=== PATIENT | female | born 1960 | race Caucasian/White ===

== ENCOUNTER → 2021-04-18 07:28 | Outpatient (CLI) | payer BC, SELFPAY ==
--- NOTE | ~2021-04-18 | XR_ITS ---
EXAMINATION: HAND-JARRELL ARTHRITIS 3+VIEWS DATE: 04/18/2021 07:47 INDICATION: Bilateral hand pain. TECHNIQUE: Posteroanterior, lateral, and oblique views of the left and of the right hands as well as a ballcatchers view of both hands were obtained. COMPARISON: None. FINDINGS: Ossicle overlying the tip of the small left ulnar styloid process suggesting chronic nonunited fractu re. Bone alignment is otherwise normal. No acute fractures identified. Mild polyarticular osteoarthri tis at several of the interphalangeal joints with distal predominance. Periarticular soft tissue swel ling at the right third proximal interphalangeal joint. Tiny dystrophic calcification projecting over the region of the radial collateral ligament of the right third metacarpophalangeal joint with small erosion at the radial base of the proximal phalanx. No other erosions identified. IMPRESSION: 1. Mild polyarticular osteoarthritis at several predominantly distal interphalangeal joints. 2. Single isolated erosion at the radial base of the right third proximal phalanx with adjacent tiny dystrophic soft tissue calcification in the region of the radial collateral ligament complex. No othe r erosions identified. Differential would include inflammatory arthritis such as rheumatoid or sequel a of old trauma to the radial collateral ligament. Correlate with clinical history. 3. 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 Reviewed, dictated and finalized at location A. IMPRESSION: 1. Mild polyarticular osteoarthritis at several predominantly distal interphala ngeal joints. 2. Single isolated erosion at the radial base of the right third proximal phala nx with adjacent tiny dystrophic soft tissue calcification in the region of the radial collateral ligament complex. No other erosions identified. Differential would include inflammatory arthritis such as rheumatoid or sequela of old trau ma to the radial collateral ligament. Correlate with clinical history. 3. 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
== END ==
PROVIDERS: PCP Family Medicine; Visit Provider Physician Assistant Medical
DX: M19.041 Primary osteoarthritis, right hand (principal); M19.042 Primary osteoarthritis, left hand
CPT/HCPCS: 73130

== ENCOUNTER 2021-06-28 10:22 | Outpatient (CLI) | payer BC, SELFPAY ==
--- NOTE | 2021-06-28 11:45 | NEURO_ITS ---
Impression: # Complains of left hand pain and numbness. # Left severe Carpal Tunnel Syndrome. # No ulnar neuropathy. # Normal needle/EMG exam. # Cross innervation ulnar to median above the wrist noted. Nerve Conduction Studies Anti Sensory Summary Table Stim Site NR Peak (ms) P-T Amp (?V) Site1 Site2 Delta-P (ms) Dist (cm) Flaco (m/s) Left Median Anti Sensory (2-3nd Digit) Wrist 7.1 5.4 Wrist 2-3nd Digit 7.1 14.0 20 Wrist 8.4 21.0 Wrist 2-3nd Digit 7.1 14.0 20 Right Median Anti Sensory (2-3nd Digit) Wrist 2.9 61.1 Wrist 2-3nd Digit 2.9 14.0 48 Wrist 2.8 60.6 Wrist 2-3nd Digit 2.9 14.0 48 Left Radial Anti Sensory (Base 1st Digit) Wrist 1.7 23.3 Wrist Base 1st Digit 1.7 0.0 Right Radial Anti Sensory (Base 1st Digit) Wrist 1.8 18.8 Wrist Base 1st Digit 1.8 0.0 Left Ulnar Anti Sensory (5th Digit) Wrist 2.4 48.6 Wrist 5th Digit 2.4 14.0 58 Right Ulnar Anti Sensory (5th Digit) Wrist 2.1 24.2 Wrist 5th Digit 2.1 14.0 67 Motor Summary Table Stim Site NR Onset (ms) O-P Amp (mV) Site1 Site2 Delta-0 (ms) Dist (cm) Flaco (m/s) Left Median Motor Run #2 (Abd Poll Brev) Wrist 7.0 0.7 Elbow Wrist 0.7 26.0 371 Elbow 7.7 1.9 Right Median Motor (Abd Poll Brev) Wrist 3.1 6.9 Elbow Wrist 4.7 26.0 55 Elbow 7.8 5.9 Left Ulnar Motor (Abd Dig Minimi) Wrist 2.3 5.0 A Elbow Wrist 4.7 28.0 60 A Elbow 7.0 4.1 Right Ulnar Motor (Abd Dig Minimi) Wrist 1.9 7.8 A Elbow Wrist 4.7 27.0 57 A Elbow 6.6 7.2 F Wave Studies NR F-Lat (ms) L-R F-Lat (ms) Left Median (Mrkrs) (Abd Poll Brev) 28.85 0.88 Right Median (Mrkrs) (Abd Poll Brev) 27.97 0.88 Left Ulnar (Mrkrs) (Abd Dig Min) 25.12 0.93 Right Ulnar (Mrkrs) (Abd Dig Min) 26.05 0.93 EMG Side Muscle Nerve Root Ins Act Fibs Amp Dur Recrt Comment Right 1stDorInt Ulnar C8-T1 Nml Nml Nml Nml Nml Right Ext Indicis Radial (Post Int) C7-8 Nml Nml Nml Nml Nml Right Ext Digitorum Radial (Post Int) C7-8 Nml Nml Nml Nml Nml Right BrachioRad Radial C5-6 Nml Nml Nml Nml Nml Right PronatorTeres Median C6-7 Nml Nml Nml Nml Nml Right Abd Poll Brev Median C8-T1 Nml Nml Nml Nml Nml Left 1stDorInt Ulnar C8-T1 Nml Nml Nml Nml Nml Left Ext Indicis Radial (Post Int) C7-8 Nml Nml Nml Nml Nml Left Ext Digitorum Radial (Post Int) C7-8 Nml Nml Nml Nml Nml Left BrachioRad Radial C5-6 Nml Nml Nml Nml Nml Left PronatorTeres Median C6-7 Nml Nml Nml Nml Nml Left Abd Poll Brev Median C8-T1 Nml Nml Nml Nml Nml MTDD
== END 2021-06-28 10:23 | disposition home or self-care (01) ==
PROVIDERS: PCP Family Medicine; Visit Provider Physician Assistant Medical
DX: R20.0 Anesthesia of skin (principal); G56.02 Carpal tunnel syndrome, left upper limb; G56.22 Lesion of ulnar nerve, left upper limb
CPT/HCPCS: 95886; 95911

== ENCOUNTER → 2021-08-21 02:33 | Outpatient (CLI) | payer BC, SELFPAY ==
[2021-08-21 16:20] LABS: SARS-CoV-2 RNA PCR Negative
== END ==
PROVIDERS: PCP Family Medicine; Visit Provider Plastic Surgery
DX: Z01.812 Encounter for preprocedural laboratory examination (principal); Z20.822 Contact with and (suspected) exposure to COVID-19
CPT/HCPCS: C9803; U0003; U0005

== ENCOUNTER 2021-08-24 00:12 | Day surgery (SDC) | payer BC, SELFPAY ==
--- NOTE | 2021-08-21 09:53 | PC.NURSE ---
Report to the Outpatient Waiting Room, entrance under the green pavilion located off [facility], at time 0600 on date 08/24/21. OR Time: 0730. - You and your visitor will be asked a series of questions to screen for COVID 19 for your protection. - A mask is required within the hospital. - Only one visitor is allowed at this time. Patient visitors will be guided where to wait when not with patient. Preoperative COVID Testing Requirements: No COVID Test needed if: (proof is required; if not received patient will have Rapid Test prior to entry) - Patient has received COVID Vaccine at least 14 days prior to procedure date or - Patient has positive COVID test result within last 90 days of surgery date. COVID Test needed if above criteria is not met If not COVID vaccinated a COVID test must be conducted within 72 hours of surgery and patient is asked to isolate self from time of testing until procedure. You will go to the [employer] [facility] for your COVID testing. The [employer] [facility] is located at the corner of [address] [facility]. You will only be called if COVID results are positive and your surgeon may reschedule your elective surgery date. Patients may have clear liquids (water, carbonated beverages, clear teas, apple juice) until 3 hours prior to surgery with a maximum of 20 ounces. - No food from midnight until time of surgery - Infants may have breast milk until 4 hours before surgery, formula 6 hours prior to surgery. - Children will be allowed to drink immediately following surgery. If applicable, please bring a bottle or sippy cup to assist with drinking. Juice, water, soda, and popsicles are readily available. For infants on formula, please bring formula the day of surgery. Pacifiers are allowed. Take the following medications with a SIP of water the morning of surgery: LEVOTHYROXINE Please no make-up, nail canadian, hairspray, perfume, deodorant, or body powder the day of surgery. No jewelry (including any body piercings) or valuables the day of surgery, leave them at home. Please take a shower or bath the night before, or the morning of, surgery with an antibacterial soap. Wear comfortable, loose fitting clothing. Children are encouraged to wear pajamas. - Jewelry must be removed prior to entering the operating room. Rings and piercings that are not removed may be cut off. - The hospital will not accept responsibility for valuables. - Please leave all valuables, including medications, at home the day of surgery. If you are going home after surgery, a licensed train driver must drive you home. - NO public transportation without another adult. - We recommend that an adult stay with you for 24 hours following discharge. - We also recommend that you do not drive, make important decision, drink alcoholic beverages, or take any drugs that were not prescribed by your health care provider for at least 24 hours after your discharge time. For Pediatric surgeries, we recommend two adults accompany the child home (only one inside the building at this time). Follow any additional instructions given to you from your surgeon. Telephone instructions given to BINTA CHASE and asked if any additional questions and then verbalized understanding. Patient advised to call surgeon office or pre surgery nurse liaison [phone] if any additional questions.
[2021-08-21 10:10] VITALS: BMI 27.0
[2021-08-24 06:15] VITALS: BP 128/68; PULSE 83; RESP 16; TEMP 36.7; O2SAT 98
[2021-08-24] MEDS: LACTATED RINGERS 1,000 ML 30 ML IV CONT (06:45)
--- NOTE | 2021-08-24 06:45 | P.PNAN_ITS ---
Anes - Initial Pre Proc Eval Procedure: Operation Date: 08/24/21 07:30 Proposed Procedures p Left Open Carpal Tunnel Release - Russ Gauthier MD s Release Left First A-1 Staci - Russ Gauthier MD Date/Time: 08/24/21 06:45 Surgeon: Russ Gauthier MD Pre Op Diagnosis: left carpal tunnel syndrome, left trigger thumb Patient Data Age: 60 Gender: F Height: 1.56 m Weight: 66 kg Allergies Allergy/AdvReac Type Severity Reaction Status Date / Time sulfamethizole Allergy Severe Hives Verified 08/21/21 10:05 sulfamethoxazole Allergy Severe HIVES Verified 08/21/21 10:05 trimethoprim Allergy Severe Hives Verified 08/21/21 10:05 Home Medications Medication Instructions Recorded Confirmed Type hydroxyzine HCl 50 mg tablet 50 mg PO BID #180 tablet 05/15/21 08/21/21 Rx diphenhydramine HCl [Nervine] 25 mg PO TID PRN 08/21/21 08/21/21 History levothyroxine 88 mcg tablet 88 mcg PO DAILY #90 tablet 08/21/21 Rx Patient hx anesthesia problems: none Family hx anesthesia problems: none Results Review: All pre-operative results and documents have been reviewed as part of the pre-operative evaluation. [facility] Past Medical History Medical History BMI 28.0-28.9,adult Hormone imbalance Hypothyroidism Screening cholesterol level Skin lesion of left leg Family History Family History Other Family history of coronary artery disease Hypertension Social History Social History Alcohol intake: current Drinks per week: 2 Substance use: never Substance use type: does not use Living arrangements: with family Spiritual care concerns: No Anes - Eval Final PreProcedure Day of Procedure 08/24/21 06:45 Patient weight: overweight Heart: regular rate and rhythm Lungs: clear to auscultation Airway: Mallampati scale class II Neurological: alert and oriented Last oral intake: >/= 8 hours ASA classification: II Emergent: no Anesthetic plan: proceed Anesthesia type and monitoring: general GIVS and standard monitoring Results Review: All pre-operative results and documents have been reviewed as part of the pre-operative evaluation. Informed Consent: The patient's anesthetic plan and its attendant risks and benefits were discussed with the patient/family/POA. Questions were solicited and answers provided to the satisfaction of the patient/family/POA.
--- NOTE | 2021-08-24 07:14 | WPDHPUPDATE1 ---
History and Physical Update Update Date/Time: 08/24/21 07:14 History and Physical has been reviewed, including an updated exam of the patient. There are NO changes in the patient's condition. Risks, benefits, and alternatives have been discussed and questions answered. Patient agrees to proceed with procedure.
[2021-08-24] MEDS: LIDO 1%/EPINEPHRINE/PF 1:200,000 30 ML VIAL INFILTRATE (07:40)
[2021-08-24 07:56] VITALS: BP 127/83; PULSE 67; RESP 14; O2SAT 96
--- NOTE | 2021-08-24 07:58 | W.PM.PROC2 ---
Procedure Note - Detailed Date of Procedure 08/24/21 Pre-op Diagnosis left carpal tunnel syndrome, left trigger thumb Post-op Diagnosis same Procedure Performed Left open carpal tunnel release and left 1st A1 carloz release Surgeon Russ Gauthier MD Anesthesia MAC Description of Procedure The patient was greeted in the holding area and both sites marked on her left hand for the trigger thumb release in the carpal tunnel release. She was then taken to the operating room where she was placed supine on the operating table. A time-out was held and confirmed. She was given IV sedation. The left upper extremity was prepped and draped in usual fashion. The sites were remarked for incisions and locally infiltrated with 1% lidocaine with epinephrine. The tourniquet was raised to 250 mmHg. The incision in base of the thumb was done 1st of blunt dissection through the thin subcutaneous fat revealed the A1 carloz. This was incised with a 15. Blade. The release of the A1 carloz was completed with scissors. Patient was not responsive and the tendon was not elevated out of the wound on tips of Littler scissors. This appeared to allow free motion. Attention was turned to the carpal ligament site the in. The incision was made there and dissection was carried bluntly through the subcutaneous tissue to the palmar aponeurosis. This was incised with a 15 blade. The underlying carpal ligament was also incised with a 15 blade. Under 3 point retraction the ligament was divided distally and proximally to completely release it. The 2 skin wounds were closed with interrupted 5 0 nylon suture. No unusual anatomy was noted. The usual bandages were applied the tourniquet was released. She is discharged from the operating room stable condition she has a prescription sent to her pharmacy for hydrocodone 5/325 on 7. Tourniquet Time 11 Drains No Packing No Pathology none sent Complications No immediate complications Condition stable Disposition same day
[2021-08-24 08:15] VITALS: BP 127/94; PULSE 62; RESP 14; O2SAT 95
[2021-08-24 08:40] VITALS: BP 136/72; PULSE 58; RESP 14
== END 2021-08-24 08:53 | disposition home or self-care (01) ==
PROVIDERS: PCP Family Medicine; Visit Provider Plastic Surgery
PROC: (CPT 64721; principal; 2021-08-24 07:30)
PROC: (CPT 26055; 2021-08-24 07:30)
DX: G56.02 Carpal tunnel syndrome, left upper limb (principal); M65.312 Trigger thumb, left thumb; E03.9 Hypothyroidism, unspecified
CPT/HCPCS: 64721; 26055; A9270; C9803; J2250; J2704; J3010; J7120; U0003; U0005

== ENCOUNTER → 2021-10-16 02:08 | Outpatient (CLI) | payer BC, SELFPAY ==
[2021-10-16 19:04] LABS: SARS-CoV-2 RNA PCR Negative
== END ==
PROVIDERS: PCP Family Medicine; Visit Provider Plastic Surgery
DX: Z01.812 Encounter for preprocedural laboratory examination (principal); Z20.822 Contact with and (suspected) exposure to COVID-19
CPT/HCPCS: C9803; U0003; U0005

== ENCOUNTER 2021-10-19 00:22 | Day surgery (SDC) | payer BC, SELFPAY ==
[2021-10-12 10:06] VITALS: BMI 27.4
--- NOTE | 2021-10-12 10:12 | PC.NURSE ---
Report to the Outpatient Waiting Room, entrance under the green pavilion located off [facility], at time 0730 on date 10/19/21. OR Time: 0930. - You and your visitor will be asked a series of questions to screen for COVID 19 for your protection. - A mask is required within the hospital. - Only one visitor is allowed at this time. Patient visitors will be guided where to wait when not with patient. Preoperative COVID Testing Requirements: No COVID Test needed if: (proof is required; if not received patient will have Rapid Test prior to entry) - Patient has received COVID Vaccine at least 14 days prior to procedure date or - Patient has positive COVID test result within last 90 days of surgery date. COVID Test needed if above criteria is not met If not COVID vaccinated a COVID test must be conducted within 72 hours of surgery and patient is asked to isolate self from time of testing until procedure. You will go to the [employer] [facility] for your COVID testing. The [employer] [facility] is located at the corner of [address] [facility]. COVID TEST 10/16 AT 0830 You will only be called if COVID results are positive and your surgeon may reschedule your elective surgery date. Patients may have clear liquids (water, carbonated beverages, clear teas, apple juice) until 3 hours prior to surgery with a maximum of 20 ounces. - No food from midnight until time of surgery - Infants may have breast milk until 4 hours before surgery, infant formula 6 hours prior to surgery. - Children will be allowed to drink immediately following surgery. If applicable, please bring a bottle or sippy cup to assist with drinking. Juice, water, soda, and popsicles are readily available. For infants on formula, please bring formula the day of surgery. Pacifiers are allowed. Take the following medications with a SIP of water the morning of surgery: LEVOTHYROXINE Medications to discontinue per physician: N/A Date to take last dose: N/A Please no make-up, nail swiss, hairspray, perfume, deodorant, or body powder the day of surgery. No jewelry (including any body piercings) or valuables the day of surgery, leave them at home. Please take a shower or bath the night before, or the morning of, surgery with an antibacterial soap. Wear comfortable, loose fitting clothing. Children are encouraged to wear pajamas. - Jewelry must be removed prior to entering the operating room. Rings and piercings that are not removed may be cut off. - The hospital will not accept responsibility for valuables. - Please leave all valuables, including medications, at home the day of surgery. If you are going home after surgery, a licensed production truck driver must drive you home. - NO public transportation without another adult. - We recommend that an adult stay with you for 24 hours following discharge. - We also recommend that you do not drive, make important decision, drink alcoholic beverages, or take any drugs that were not prescribed by your health care provider for at least 24 hours after your discharge time. For Pediatric surgeries, we recommend two adults accompany the child home (only one inside the building at this time). Follow any additional instructions given to you from your surgeon. Telephone instructions given to BINTA CHASE and asked if any additional questions and then verbalized understanding. Patient advised to call surgeon office or pre surgery nurse liaison [phone] if any additional questions.
--- NOTE | 2021-10-19 07:12 | WPDHPUPDATE1 ---
History and Physical Update Update Date/Time: 10/19/21 07:12 History and Physical has been reviewed, including an updated exam of the patient. There are NO changes in the patient's condition. Risks, benefits, and alternatives have been discussed and questions answered. Patient agrees to proceed with procedure.
[2021-10-19 07:27] VITALS: BMI 26.9
[2021-10-19 07:30] VITALS: BP 137/71; PULSE 78; RESP 16; TEMP 37.1; O2SAT 100
[2021-10-19] MEDS: LACTATED RINGERS 1,000 ML 30 ML IV CONT (07:45)
--- NOTE | 2021-10-19 08:42 | WPDANESEPPF ---
Anes - Initial Pre Proc Eval Procedure: Operation Date: 10/19/21 09:30 Proposed Procedures p Right Open Carpal Tunnel Release - Russ Gauthier MD Date/Time: 10/19/21 08:42 Surgeon: Russ Gauthier MD Pre Op Diagnosis: right carpal tunnel syndrome Patient Data Age: 61 Gender: F Height: 1.56 m Weight: 65.8 kg Allergies Allergy/AdvReac Type Severity Reaction Status Date / Time sulfamethizole Allergy Severe Hives Verified 10/19/21 07:40 sulfamethoxazole Allergy Severe HIVES Verified 10/19/21 07:40 trimethoprim Allergy Severe Hives Verified 10/19/21 07:40 Home Medications Medication Instructions Recorded Confirmed Type hydroxyzine HCl 50 mg tablet 50 mg PO BID #180 tablet 05/15/21 10/12/21 Rx diphenhydramine HCl 25 mg PO HS PRN 08/21/21 10/12/21 History levothyroxine 88 mcg tablet 88 mcg PO DAILY #90 tablet 08/28/21 10/19/21 Rx Patient hx anesthesia problems: none Family hx anesthesia problems: none Results Review: All pre-operative results and documents have been reviewed as part of the pre-operative evaluation. [facility] Past Medical History Medical History BMI 28.0-28.9,adult Hormone imbalance Hypothyroidism Screening cholesterol level Skin lesion of left leg Family History Family History Other Family history of coronary artery disease Hypertension Social History Social History Smoking status: Never smoker Alcohol intake: never Drinks per week: 2 Substance use: never Substance use type: does not use Living arrangements: with family Spiritual care concerns: No Anes - Eval Final PreProcedure Day of Procedure 10/19/21 08:42 Patient weight: overweight Heart: regular rate and rhythm Lungs: clear to auscultation Airway: Mallampati scale class II Neurological: alert and oriented Last oral intake: >/= 8 hours ASA classification: II Emergent: no Anesthetic plan: proceed Anesthesia type and monitoring: general GIVS and standard monitoring Results Review: All pre-operative results and documents have been reviewed as part of the pre-operative evaluation. Informed Consent: The patient's anesthetic plan and its attendant risks and benefits were discussed with the patient/family/POA. Questions were solicited and answers provided to the satisfaction of the patient/family/POA.
[2021-10-19] MEDS: LIDO 1%/EPINEPHRINE/PF 1:200,000 30 ML VIAL XX (09:26)
--- NOTE | 2021-10-19 09:37 | SUR.OPER ---
Room Time: 09:11 Time Out: 09:24 Incision: 09:26 Close: 09:35 Out of Room: 09:38
[2021-10-19] MEDS: BACITRACIN OINTMENT 15 GM TUBE 1 APPLIC TOPICAL (09:38)
[2021-10-19 09:39] VITALS: BP 125/79; PULSE 75; RESP 19; O2SAT 95
[2021-10-19 10:00] VITALS: BP 116/96; PULSE 90; RESP 18; O2SAT 97
[2021-10-19 10:30] VITALS: BP 138/64; PULSE 63; RESP 18
--- NOTE | 2021-10-19 10:31 | W.PM.PROC2 ---
Procedure Note - Detailed Date of Procedure 10/19/21 Pre-op Diagnosis right carpal tunnel syndrome Post-op Diagnosis same Procedure Performed Right open carpal tunnel release Surgeon Russ Gauthier MD Anesthesia MAC Description of Procedure The right carpal tunnel was marked on the patient in the holding area. He was taken to the operating room where he was placed supine on the operating table. A time-out was held and confirmed. He was given IV sedation and the right upper extremity was prepped and draped in usual fashion. The site for incision was marked and locally infiltrated with 1% lidocaine with epinephrine. No tourniquet was utilized. Incision was made as marked and dissection was carried bluntly through the subcutaneous tissue to the palmar aponeurosis. This and the carpal retinaculum were incised with a 15. Blade opening the canal. The ligament was exposed with retractors and the ligament divided distally and proximally to completely release it. No unusual anatomy was noted. The skin was closed with interrupted 5 0 nylon suture and the usual bandage was applied. She is discharge instructions wound care and follow-up. She has hydrocodone at home from her last surgery and wished no more . Estimated Blood Loss 2 Tourniquet Time 0 Drains No Packing No Pathology none sent Complications No immediate complications Condition stable Disposition same day
== END 2021-10-19 10:50 | disposition home or self-care (01) ==
PROVIDERS: PCP Family Medicine; Visit Provider Plastic Surgery
PROC: (CPT 64721; principal; 2021-10-19 09:30)
DX: G56.01 Carpal tunnel syndrome, right upper limb (principal); E03.9 Hypothyroidism, unspecified
CPT/HCPCS: 64721; A9270; C9803; J2704; J3010; J7120; U0003; U0005

== ENCOUNTER → 2022-03-13 15:46 | Outpatient (CLI) | payer BC, SELFPAY ==
--- NOTE | ~2022-03-13 | XR_ITS ---
EXAM: XR foot RT 2V DATE: 03/13/2022 16:12 HISTORY: M79.673 - Pain in unspecified foot . COMPARISON: None available. FINDINGS: Decreased mineralization. No fracture or dislocation. No lytic or blastic lesion. Joint sp aces are maintained. No erosion or periosteal change. Soft tissues within normal limits. IMPRESSION: Osteopenia, otherwise normal right foot radiograph findings. Reviewed, dictated and finalized at location K.
--- NOTE | ~2022-03-13 | XR_ITS ---
EXAM: XR knee RT 2V DATE: 03/13/2022 16:12 HISTORY: M25.569 - Pain in unspecified knee . COMPARISON: None available. FINDINGS: Decreased mineralization. No fracture or dislocation. No lytic or blastic lesion. Mild med ial joint space narrowing and subchondral sclerosis. No erosion or periosteal change. Soft tissues wi thin normal limits. IMPRESSION: Mild right knee osteoarthritis. Mild osteopenia. Reviewed, dictated and finalized at location K.
== END ==
PROVIDERS: PCP Family Medicine; Visit Provider Nurse Practitioner Family
DX: M85.871 Other specified disorders of bone density and structure, right ankle and foot (principal); M17.11 Unilateral primary osteoarthritis, right knee; M85.861 Other specified disorders of bone density and structure, right lower leg; Z87.312 Personal history of (healed) stress fracture
CPT/HCPCS: 73560; 73620

== ENCOUNTER → 2022-04-02 07:04 | Outpatient (CLI) | payer BC, SELFPAY ==
--- NOTE | ~2022-04-02 | MR_ITS ---
EXAMINATION: MR knee RT wo con DATE: 04/02/2022 07:37 INDICATION: Right knee pain TECHNIQUE: Magnetic resonance imaging (MRI) of the right knee was performed without intravenous contr ast. Sequences included coronal PD-weighted FSE, coronal PD-weighted FS FSE, sagittal T2-weighted FS E, sagittal PD-weighted FS FSE and axial PD weighted fat saturated FSE. COMPARISON: Right knee radiographs dated 03/09/2022 FINDINGS: Medial compartment: Amorphous increased intrasubstance signal at the posterior horn of the medial meniscus which does not unambiguously contact the articular surface to meet criteria for meniscal tear which would be consis tent with mucoid degeneration. There is prominent marrow edema surrounding a low signal intensity sub articular fracture line underlying the anterior weightbearing medial femoral condyle with subtle flat tening of the articular cortex. Articular cartilage the medial compartment appears relatively preserv ed for subtle chondral surface irregularity along the anterior to central weightbearing medial femora l condyle. Lateral compartment: Lateral meniscus is normal. Articular cartilage is normal. Patellofemoral compartment: Full-thickness chondral fissuring with mild underlying subarticular edema and cystlike changes at the junction of the mid to caudal third of the patellar apical ridge. Additional deep chondral fissuring with subtle underlying cortical irregularity and subarticular edema-like signal change at the inferi or aspect of the medial trochlea. Ligaments and tendons: Anterior and posterior cruciate ligaments are normal. The medial collateral ligament and fibular kishor ateral ligament complex are normal. The extensor mechanism is normal. The visualized medial and later al hamstring tendons as well as the iliotibial band are normal. Fluid: Physiologic amount of fluid in the joint space. No loose osteochondral bodies identified. Osseous/other: Additional mild marrow edema without evident fracture line in the proximal metaphyseal region of the tibia. No pathologic marrow replacing process. IMPRESSION: 1. Nondisplaced subarticular fracture line at the anterior weightbearing medial femoral condyle with maximal flattening of the articular cortex which could be due to either a discrete injury or an ongoi ng progressive stress or insufficiency fracture. 2. Mild osteoarthritis in the medial and patellofemoral compartments, the latter with a couple small regions of high-grade chondromalacia. 3. Mucoid degeneration in the posterior horn of the medial meniscus without discrete tear. Reviewed, dictated and finalized at location A. IMPRESSION: 1. Nondisplaced subarticular fracture line at the anterior weightbearing medial femoral condyle with maximal flattening of the articular cortex which could be due to either a discrete injury or an ongoing progressive stress or insufficie ncy fracture. 2. Mild osteoarthritis in the medial and patellofemoral compartments, the latte r with a couple small regions of high-grade chondromalacia. 3. Mucoid degeneration in the posterior horn of the medial meniscus without dis crete tear.
== END ==
PROVIDERS: PCP Family Medicine; Visit Provider Nurse Practitioner Family
DX: M17.11 Unilateral primary osteoarthritis, right knee (principal); S72.434A Nondisplaced fracture of medial condyle of right femur, initial encounter for closed fracture; X58.XXXA Exposure to other specified factors, initial encounter
CPT/HCPCS: 73721

== ENCOUNTER 2022-05-11 00:23 | Day surgery (SDC) | payer BC, SELFPAY ==
[2022-05-01 10:13] VITALS: BMI 28.4
--- NOTE | 2022-05-10 14:32 | PM.HPGS ---
History of Present Illness History of Present Illness Consent: Risks, benefits, and alternatives have been discussed and questions answered. Patient agrees to proceed with procedure. Chief complaint: neoplasm screening Narrative: Barbara Arita is a 61 year old female Referred for colon cancer screening. Review of Systems Review of Systems: All systems reviewed & are unremarkable except as noted in HPI and below PMFSH Past Medical History Medical History Acute medial meniscus tear of right knee BMI 28.0-28.9,adult Carpal tunnel syndrome of left wrist Carpal tunnel syndrome of right wrist Chondromalacia of right patellofemoral joint Degenerative arthritis of right knee Hormone imbalance Hyperthyroidism Hypothyroidism Insufficiency fracture of medial femoral condyle Screening cholesterol level Screening mammogram for high-risk patient Skin lesion of left leg Surgical History Surgical History History of ankle surgery Left ganglion cyst excision 07/2019 Dr. Rashid. History of carpal tunnel surgery Left 08/2021 Right 09/[address] Strauss Family History Family History Other Family history of coronary artery disease Heart disease Hypertension Social History Social History Smoking status: Never smoker Alcohol intake: current Drinks per week: 1 Substance use: never Substance use type: does not use Living arrangements: with family Gender identity (if verbalized by the patient): Female Spiritual care concerns: No Meds Home Medications and Allergies Home Medications Medication Instructions Recorded Confirmed Type hydroxyzine HCl 50 mg tablet 50 mg PO BID #180 tabs 04/04/22 05/01/22 Rx levothyroxine 88 mcg tablet 88 mcg PO DAILY #90 tabs 04/04/22 05/01/22 Rx (Synthroid) calcium carbonate 600 mg calcium 600 mg PO DAILY 04/18/22 05/01/22 History (1,500 mg) tablet cholecalciferol (vitamin D3) 1,200 mcg PO DIRECTED 04/18/22 05/01/22 History Allergies Allergy/AdvReac Type Severity Reaction Status Date / Time sulfamethizole Allergy Severe Hives Verified 05/11/22 07:21 sulfamethoxazole Allergy Severe HIVES Verified 05/11/22 07:21 trimethoprim Allergy Severe Hives Verified 05/11/22 07:21 terbinafine Allergy Unknown Hives Verified 05/11/22 07:21 Exam Resp: Auscultation: clear to auscultation bilaterally Cardio: Rate: regular rate Rhythm: regular rhythm GI: GI Palp: Yes Soft to palpation and No Tenderness to palpation present (GI) Assessment and Plan Assessment and plan (1) Colon cancer screening: Code(s): Z12.11 - Encounter for screening for malignant neoplasm of colon Status: Acute Assessment and Plan: Colonoscopy with possible biopsy or polypectomy or cautery or injection of substances.
[2022-05-11 07:23] VITALS: BP 135/78; PULSE 84; RESP 18; TEMP 36.7; O2SAT 100
[2022-05-11] MEDS: LACTATED RINGERS 1,000 ML 150 ML IV CONT (07:34)
--- NOTE | 2022-05-11 07:56 | WPDANESEPPF ---
Anes - Initial Pre Proc Eval Procedure: Operation Date: 05/11/22 08:30 Proposed Procedures p Screening Colonoscopy - Alberto Appiah MD Date/Time: 05/11/22 07:56 Surgeon: Alberto Appiah MD Pre Op Diagnosis: neoplasm screening Patient Data Age: 61 Gender: F Height: 1.55 m Weight: 67 kg Last Vital Signs Temp 36.7 C 05/11/22 07:23 Pulse 84 05/11/22 07:23 Resp 18 05/11/22 07:23 BP 135/78 05/11/22 07:23 Pulse Ox 100 05/11/22 07:23 O2 Del Method Room Air 05/11/22 07:23 Allergies Allergy/AdvReac Type Severity Reaction Status Date / Time sulfamethizole Allergy Severe Hives Verified 05/11/22 07:21 sulfamethoxazole Allergy Severe HIVES Verified 05/11/22 07:21 trimethoprim Allergy Severe Hives Verified 05/11/22 07:21 terbinafine Allergy Unknown Hives Verified 05/11/22 07:21 Home Medications Medication Instructions Recorded Confirmed Type hydroxyzine HCl 50 mg tablet 50 mg PO BID #180 tabs 04/04/22 05/01/22 Rx levothyroxine 88 mcg tablet 88 mcg PO DAILY #90 tabs 04/04/22 05/01/22 Rx (Synthroid) calcium carbonate 600 mg calcium 600 mg PO DAILY 04/18/22 05/01/22 History (1,500 mg) tablet cholecalciferol (vitamin D3) 1,200 mcg PO DIRECTED 04/18/22 05/01/22 History Patient hx anesthesia problems: post op nausea/vomiting Family hx anesthesia problems: none Results Review: All pre-operative results and documents have been reviewed as part of the pre-operative evaluation. [facility] Past Medical History Medical History Acute medial meniscus tear of right knee BMI 28.0-28.9,adult Carpal tunnel syndrome of left wrist Carpal tunnel syndrome of right wrist Chondromalacia of right patellofemoral joint Degenerative arthritis of right knee Hormone imbalance Hyperthyroidism Hypothyroidism Insufficiency fracture of medial femoral condyle Screening cholesterol level Screening mammogram for high-risk patient Skin lesion of left leg Surgical History Surgical History History of ankle surgery Left ganglion cyst excision 07/2019 Dr. Rashid. History of carpal tunnel surgery Left 08/2021 Right 09/[address] Strauss Family History Family History Other Family history of coronary artery disease Heart disease Hypertension Social History Social History Smoking status: Never smoker Alcohol intake: current Drinks per week: 1 Substance use: never Substance use type: does not use Living arrangements: with family Gender identity (if verbalized by the patient): Female Spiritual care concerns: No Anes - Eval Final PreProcedure Day of Procedure 05/11/22 07:56 Patient weight: overweight Heart: regular rate and rhythm Lungs: clear to auscultation Airway: Mallampati scale class II Neurological: alert and oriented Last oral intake: >/= 8 hours ASA classification: II Emergent: no Anesthetic plan: proceed Anesthesia type and monitoring: general GIVS and standard monitoring Results Review: All pre-operative results and documents have been reviewed as part of the pre-operative evaluation. Informed Consent: The patient's anesthetic plan and its attendant risks and benefits were discussed with the patient/family/POA. Questions were solicited and answers provided to the satisfaction of the patient/family/POA.
[2022-05-11 08:29] VITALS: BP 118/72; PULSE 77; RESP 17; O2SAT 100
[2022-05-11 08:39] VITALS: BP 124/77; PULSE 76; RESP 18; O2SAT 100
[2022-05-11 08:49] VITALS: BP 142/81; PULSE 75; RESP 20; O2SAT 100
== END 2022-05-11 09:08 | disposition home or self-care (01) ==
PROVIDERS: PCP Family Medicine; Visit Provider Internal Medicine Gastroenterology
PROC: 0DJD8ZZ Inspection of Lower Intestinal Tract, Via Natural or Artificial Opening Endoscopic (ICD-10-PCS; CPT 45378; principal; 2022-05-11 08:30)
DX: Z12.11 Encounter for screening for malignant neoplasm of colon (principal); K64.8 Other hemorrhoids; E03.9 Hypothyroidism, unspecified; M19.90 Unspecified osteoarthritis, unspecified site; E05.90 Thyrotoxicosis, unspecified without thyrotoxic crisis or storm
CPT/HCPCS: 45378; J2704; J7120

== ENCOUNTER 2022-06-24 13:29 | Emergency (ER) | payer BC, SELFPAY ==
[2022-06-24 13:37] VITALS: BP 136/61; PULSE 86; RESP 16; TEMP 36.6; O2SAT 99
--- NOTE | 2022-06-24 13:37 | ED.URI ---
HPI - URI/Sore Throat General Chief Complaint: Upper Respiratory Infection Stated Complaint: Sinus, Coughing Time Seen by Provider: 06/24/22 13:37 Source: patient and RN notes reviewed Mode of arrival: ambulatory Limitations: no limitations History of Present Illness HPI Narrative: 61-year-old female presents to the [facility] with complaints of 2 weeks of cough, sinus congestion. Denies chest pain or abdominal pain. Denies any fevers. Related Data Home Medications Medication Instructions Recorded Confirmed calcium carbonate 600 mg calcium 600 mg PO DAILY 04/18/22 06/24/22 (1,500 mg) tablet cholecalciferol (vitamin D3) 1,200 mcg PO DIRECTED 04/18/22 06/24/22 Allergies Allergy/AdvReac Type Severity Reaction Status Date / Time sulfamethizole Allergy Severe Hives Verified 06/24/22 13:35 sulfamethoxazole Allergy Severe HIVES Verified 06/24/22 13:35 trimethoprim Allergy Severe Hives Verified 06/24/22 13:35 terbinafine Allergy Unknown Hives Verified 06/24/22 13:35 Review of Systems Review of Systems: All systems reviewed & are unremarkable except as noted in HPI and below Constitutional: Constitutional: Reports no additional constitutional complaints, Denies chills and Denies fever(s) Eyes: Eyes: Reports no additional eye complaints ENT: Reports as per HPI, Reports nasal congestion and Reports sore throat Cardiovascular: Cardiovascular: Reports no additional cardiovascular complaints Respiratory: Respiratory: Reports no additional respiratory complaints Gastrointestinal: Gastrointestinal: Reports no additional gastrointestinal complaints Musculoskeletal: Musculoskeletal: Reports no additional musculoskeletal complaints Integumentary/Breasts: Skin/Breast: Reports system reviewed and no additional complaints, except as docu Neurologic: Reports system reviewed and no additional complaints, except as documented Psychiatric: Psychiatric: Reports no additional psychiatric complaints Allergic/Immunologic: Allergic/Immunologic: Reports no additional allergic/immunologic complaints [facility] Past Medical History Medical History Acute medial meniscus tear of right knee BMI 28.0-28.9,adult Carpal tunnel syndrome of left wrist Carpal tunnel syndrome of right wrist Chondromalacia of right patellofemoral joint Degenerative arthritis of right knee Hormone imbalance Hyperthyroidism Hypothyroidism Insufficiency fracture of medial femoral condyle Screening cholesterol level Screening mammogram for high-risk patient Skin lesion of left leg Surgical History Surgical History History of ankle surgery Left ganglion cyst excision 07/2019 Dr. Rashid. History of carpal tunnel surgery Left 08/2021 Right 09/[address] Strauss Family History Family History Other Family history of coronary artery disease Heart disease Hypertension Social History Social History Smoking status: Never smoker Alcohol intake: current Drinks per week: 1 Substance use: never Substance use type: does not use Gender identity (if verbalized by the patient): Female Spiritual care concerns: No Comments At the time of my signature, I reviewed and agree with the nursing past medical, surgical, social, and family history. There is no relevant family history pertinent to the patient complaint. Exam Const: General: healthy appearing, no acute distress and alert Nutritional Appearance: well nourished Orientation/consciousness: patient oriented x3 Limitations: no limitations HENMT: Head: normal to inspection Ears: external ears normal, TM's normal bilaterally and EAC's normal General nose exam: Normal external nose present and Normal nares present Face and sinus: normal facial exam and sinuses nontender Mo
== END 2022-06-24 13:50 | disposition home or self-care (01) ==
PROVIDERS: Emergency Provider Nurse Practitioner; PCP Family Medicine
DX: J40 Bronchitis, not specified as acute or chronic (principal)
CPT/HCPCS: 99213; G0463

== ENCOUNTER 2023-03-14 16:50 | Outpatient (CLI) | payer BC, SELFPAY ==
[2023-03-14 19:00] LABS: Hemoglobin A1C 5.7 % (<5.7)
[2023-03-14 19:15] LABS: Urine Cotinine NEGATIVE
== END 2023-03-14 16:51 | disposition home or self-care (01) ==
PROVIDERS: PCP Family Medicine; Visit Provider Nurse Practitioner Family
DX: Z01.89 Encounter for other specified special examinations (principal); R73.09 Other abnormal glucose
CPT/HCPCS: 80307; 83036

== ENCOUNTER → 2023-07-19 16:13 | Outpatient (CLI) | payer BC, SELFPAY ==
--- NOTE | ~2023-07-19 | MM_ITS ---
EXAMINATION: MM screening nidhi BI w vika HISTORY: Screening mammogram TECHNIQUE: Craniocaudal and mediolateral oblique 3-D tomosynthesis images were obtained and synthetic 2-D images were generated. CAD analysis was submitted and interpreted. COMPARISON: 06/02/2019 bilateral screening mammogram BREAST PARENCHYMAL COMPOSITION: The breasts are heterogeneously dense, which may obscure small masses . FINDINGS: There is no evidence of suspicious mass, calcification, or architectural distortion to sugg est malignancy in either breast. There has been no suspicious interval change. IMPRESSION: 1. No mammographic evidence of malignancy. 2. Recommend routine screening mammography in one year. BI-RADS Category 1: Negative Reviewed, dictated and finalized at location A.
== END ==
PROVIDERS: PCP Family Medicine; Visit Provider Nurse Practitioner Family
DX: Z12.31 Encounter for screening mammogram for malignant neoplasm of breast (principal)
CPT/HCPCS: 77063; 77067

== ENCOUNTER 2023-12-14 08:06 | Emergency (ER) | payer BC, SELFPAY ==
--- NOTE | 2023-12-14 08:14 | ED.URI ---
HPI - URI/Sore Throat General Chief Complaint: Upper Respiratory Infection Stated Complaint: Sore Throat/Eye Irritation Time Seen by Provider: 12/14/23 08:14 Source: patient Mode of arrival: ambulatory Limitations: no limitations History of Present Illness HPI Narrative: 63-year-old female presents with complaint of nasal congestion, sinus pressure, postnasal drainage, scratchy throat the past 2 weeks. Denies pain. Afebrile. Reports coarse voice for 4 days. Taking Coricidin and Neti pot with no relief of symptoms. All systems reviewed and negative except as noted above. Related Data Allergies Allergy/AdvReac Type Severity Reaction Status Date / Time sulfamethizole Allergy Severe Hives Verified 12/14/23 08:17 sulfamethoxazole Allergy Severe HIVES Verified 12/14/23 08:17 terbinafine Allergy Severe Hives Verified 12/14/23 08:17 trimethoprim Allergy Severe Hives Verified 12/14/23 08:17 Review of Systems Review of Systems: CONSTITUTIONAL: Denies fever, chills, or sweats. EYES: Denies visual changes, redness, or discharge. ENT: Reports rhinorrhea, congestion, scratchy throat. Denies otalgia. CARDIOVASCULAR: Denies chest pain, palpitations, or edema. RESPIRATORY: Denies cough or dyspnea. GASTROINTESTINAL: Denies abdominal pain, nausea, vomiting, or diarrhea. GENITOURINARY: Denies dysuria or hematuria. SKIN: Denies rash or itching. MUSCULOSKELETAL: Denies back pain, joint pain, or myalgia. NEUROLOGIC: Denies headache, numbness, or weakness. PSYCHIATRIC: Denies anxiety or depression. All other systems reviewed are negative, except as documented in HPI. COUNT INCLUDES THE [facility] Past Medical History Medical History (Updated 12/14/23 @ 08:35 by Brittani Parks NP) Acute medial meniscus tear of right knee BMI 28.0-28.9,adult Carpal tunnel syndrome of left wrist Carpal tunnel syndrome of right wrist Chondromalacia of right patellofemoral joint Degenerative arthritis of right knee Hematoma of left knee region Hormone imbalance Hyperthyroidism Hypothyroidism Insufficiency fracture of medial femoral condyle Screening cholesterol level Screening mammogram for high-risk patient Skin lesion of left leg Surgical History Surgical History History of ankle surgery Left ganglion cyst excision 07/2019 Dr. Rashid. History of carpal tunnel surgery Left 08/2021 Right 09/[address] Strauss Family History Family History Father CHF (congestive heart failure) Mother CHF (congestive heart failure) Sibling Hyperlipidemia Hypertension Thyroid condition Other Family history of coronary artery disease Heart disease Social History Social History Smoking status: Never smoker Second hand tobacco smoke exposure: No Alcohol intake: current Drinks per week: 1 Substance use: never Substance use type: does not use Lack of Transportation: No Lack of Food: Never True Current Housing: I Have Housing Concerned About Future Housing: No Difficulty Paying Gas/Electric Bills: No Difficulty Paying for Meds: No Currently Unemployed: No Education: Associate Degree Living arrangements: with family Occupation/Education: occupation 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 Gender identity (if verbalized by the patient): Female Spiritual care concerns: No Comments At time of signature, agree with nursing past medical, surgical, social and family history. There is no relevant family history pertinent to the presenting complaint. Exam Narrative: GENERAL: This is a well-nourished, well-developed patient, in no apparent distress. HEAD: normocephalic, atraumatic. EYES: PERRL. Sclera clear/white. Vision is grossly intact. EARS: External ears normal, auditory canals clear and wi
[2023-12-14 08:16] VITALS: BP 141/66; PULSE 76; RESP 16; TEMP 36.7; O2SAT 98
== END 2023-12-14 08:42 | disposition home or self-care (01) ==
PROVIDERS: Emergency Provider Nurse Practitioner Family; PCP Family Medicine
DX: J01.90 Acute sinusitis, unspecified (principal); E05.90 Thyrotoxicosis, unspecified without thyrotoxic crisis or storm; E03.9 Hypothyroidism, unspecified; M17.11 Unilateral primary osteoarthritis, right knee
CPT/HCPCS: 99213; G0463

== ENCOUNTER 2023-12-15 08:04 | Emergency (ER) | payer BC, SELFPAY ==
--- NOTE | 2023-12-15 08:11 | ED.EYEPROB ---
HPI - Eye Problem General Chief complaint: Eye Problems Stated complaint: left eye red Time Seen by Provider: 12/15/23 08:06 Source: patient Mode of arrival: ambulatory Limitations: no limitations History of Present Illness HPI Narrative: Patient is a 63-year-old female presents with left eye being matted shut this morning. Patient was seen at this [facility] yesterday and diagnosed with a sinus infection and given amoxicillin. He was instructed to start taking Zyrtec and Flonase. Denies any fever, chills, nausea, vomiting, diarrhea. Related Data Allergies Allergy/AdvReac Type Severity Reaction Status Date / Time sulfamethizole Allergy Severe Hives Verified 12/15/23 08:13 sulfamethoxazole Allergy Severe HIVES Verified 12/15/23 08:13 terbinafine Allergy Severe Hives Verified 12/15/23 08:13 trimethoprim Allergy Severe Hives Verified 12/15/23 08:13 Review of Systems Review of Systems: All systems reviewed & are unremarkable except as noted in HPI and below Constitutional: Constitutional: Denies body ache(s), Denies fever(s), Denies headache(s), Denies malaise and Denies weakness Eyes: Eyes: Denies blurry vision, Reports eye discharge, Reports irritation, Reports itchy eyes, Denies loss of vision and Denies eye pain ENT: Denies otalgia, Denies headache(s), Denies nasal discharge, Denies sinus pain and Denies sore throat Cardiovascular: Cardiovascular: Denies chest pain, Denies irregular heart rhythm and Denies dyspnea Respiratory: Respiratory: Denies dyspnea Gastrointestinal: Gastrointestinal: Denies abdominal pain, Denies diarrhea, Denies nausea and Denies vomiting Musculoskeletal: Musculoskeletal: Denies back pain, Denies myalgias and Denies arthralgias Integumentary/Breasts: Skin/Breast: Denies pruritus and Denies rash Neurologic: Denies headache(s), Denies loss of vision and Denies weakness Psychiatric: Psychiatric: Reports no additional psychiatric complaints Allergic/Immunologic: Allergic/Immunologic: Reports itchy eyes PMFSH Past Medical History Medical History Acute medial meniscus tear of right knee BMI 28.0-28.9,adult Carpal tunnel syndrome of left wrist Carpal tunnel syndrome of right wrist Chondromalacia of right patellofemoral joint Degenerative arthritis of right knee Hematoma of left knee region Hormone imbalance Hyperthyroidism Hypothyroidism Insufficiency fracture of medial femoral condyle Screening cholesterol level Screening mammogram for high-risk patient Skin lesion of left leg Surgical History Surgical History History of ankle surgery Left ganglion cyst excision 07/2019 Dr. Rashid. History of carpal tunnel surgery Left 08/2021 Right 09/[address] Strauss Family History Family History Father CHF (congestive heart failure) Mother CHF (congestive heart failure) Sibling Hyperlipidemia Hypertension Thyroid condition Other Family history of coronary artery disease Heart disease Social History Social History Smoking status: Never smoker Second hand tobacco smoke exposure: No Alcohol intake: current Drinks per week: 1 Substance use: never Substance use type: does not use Lack of Transportation: No Lack of Food: Never True Current Housing: I Have Housing Concerned About Future Housing: No Difficulty Paying Gas/Electric Bills: No Difficulty Paying for Meds: No Currently Unemployed: No Education: Associate Degree Living arrangements: with family Occupation/Education: occupation 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 Gender identity (if verbalized by the patient): Female Spiritual care concerns: No Comments At time of signature, agree with johnathon
[2023-12-15 08:14] VITALS: BP 147/74; PULSE 77; RESP 16; TEMP 37.1; O2SAT 100
== END 2023-12-15 08:27 | disposition home or self-care (01) ==
PROVIDERS: Emergency Provider Nurse Practitioner Family; PCP Family Medicine
DX: H10.9 Unspecified conjunctivitis (principal); M17.12 Unilateral primary osteoarthritis, left knee; E05.90 Thyrotoxicosis, unspecified without thyrotoxic crisis or storm; E03.9 Hypothyroidism, unspecified
CPT/HCPCS: 99213; G0463

== ENCOUNTER 2024-01-22 16:03 | Outpatient (CLI) | payer BC, SELFPAY ==
--- NOTE | ~2024-01-22 | XR_ITS ---
XR ankle LT min 3V DATE: 01/22/2024 16:30 INDICATION: Fall. Lateral ankle pain TECHNIQUE: 4 views COMPARISON: None FINDINGS: Mild lateral ankle soft tissue swelling. No fracture or dislocation of the ankle or disruption of the ankle mortise. No periosteal reaction or bone destruction. IMPRESSION: Mild lateral ankle soft tissue swelling; no fracture or dislocation Reviewed, dictated and finalized at location B.
== END 2024-01-22 16:04 ==
PROVIDERS: PCP Nurse Practitioner Adult Health; Visit Provider Nurse Practitioner Adult Health
DX: M25.572 Pain in left ankle and joints of left foot (principal); M79.89 Other specified soft tissue disorders
CPT/HCPCS: 73610

== ENCOUNTER 2024-07-06 16:06 | Emergency (ER) | payer BC, SELFPAY ==
--- NOTE | ~2024-07-06 | XR_ITS ---
EXAM: XR knee LT min 4V DATE: 07/06/2024 17:07 HISTORY: left anterior knee pain/twist injury on Saturday . COMPARISON: None available. FINDINGS: Decreased mineralization. No fracture or dislocation. No lytic or blastic lesion. Mild tri compartmental osteoarthritis. Small volume joint fluid. No erosion or periosteal change. Soft tissues within normal limits. IMPRESSION: No acute osseous finding in the left knee. Reviewed, dictated and finalized at location K.
[2024-07-06 16:08] VITALS: BP 133/73; PULSE 78; RESP 18; TEMP 37.1; O2SAT 99
--- NOTE | 2024-07-06 16:08 | ED.EXTPRO ---
HPI - Extremity Problem General Chief complaint: Extremity Problem,Nontraumatic <Roderick Garcia APRN - Last Filed: 07/06/24 17:33> Stated complaint: left knee pain,swollen,hard to bend <Roderick Garcia APRN - Last Filed: 07/06/24 17:33> Time Seen by Provider: 07/06/24 16:08 <Roderick Garcia APRN - Last Filed: 07/06/24 17:33> Source: patient <Roderick Garcia APRN - Last Filed: 07/06/24 17:33> Mode of arrival: ambulatory <Roderick Garcia APRN - Last Filed: 07/06/24 17:33> Limitations: no limitations <Roderick Garcia APRN - Last Filed: 07/06/24 17:33> History of Present Illness HPI Narrative: Barbara is a 63-year-old female patient presenting to the clinic today with complaints of left knee pain/swelling x1 day. She reports she stepped down off a curb yesterday and felt unusual/twist sensation in her knee. States this morning noticed that her knee was swollen she was having difficulty bending and extending the left knee. Has pain with ambulation/bearing weight. Feels as though the knee is catching when she is moving into a standing position. <Roderick Garcia APRN - Last Filed: 07/06/24 17:33> Related Data Allergies/Adverse reactions: Allergies Allergy/AdvReac Type Severity Reaction Status Date / Time sulfamethizole Allergy Severe Hives Verified 07/06/24 16:10 sulfamethoxazole Allergy Severe HIVES Verified 07/06/24 16:10 terbinafine Allergy Severe Hives Verified 07/06/24 16:10 trimethoprim Allergy Severe Hives Verified 07/06/24 16:10 <Roderick Garcia APRN - Last Filed: 07/06/24 17:33> Review of Systems Review of Systems: Pertinent positives per HPI. Patient denies any fever, chills, rash, headache, visual changes, dizziness, cough, runny nose, sore throat, shortness of breath, chest pain, palpitations, nausea, vomiting, diarrhea, constipation, abdominal pain, or any urinary issues. <Roderick Garcia APRN - Last Filed: 07/06/24 17:33> COUNTS INCLUDE 234 BEDS AT THE [facility] Past Medical History Medical History: Medical History Acute medial meniscus tear of right knee Carpal tunnel syndrome of left wrist Carpal tunnel syndrome of right wrist Chondromalacia of right patellofemoral joint Degenerative arthritis of right knee Edema of left ankle Elevated hemoglobin A1c Encounter for wellness examination Hematoma of left knee region Hormone imbalance Hyperthyroidism Hypothyroidism Insufficiency fracture of medial femoral condyle Screening cholesterol level Screening mammogram for high-risk patient Skin lesion of left leg Vertigo <Roderick Garcia APRN - Last Filed: 07/06/24 17:33> Surgical History Surgical History: Surgical History History of ankle surgery Left ganglion cyst excision 07/2019 Dr. Rashid. History of carpal tunnel surgery Left 08/2021 Right 09/[address] Strauss <Roderick Garcia APRN - Last Filed: 07/06/24 17:33> Family History Family History: Family History Father CHF (congestive heart failure) Mother CHF (congestive heart failure) Sibling Hyperlipidemia Hypertension Thyroid condition Other Family history of coronary artery disease Heart disease <Roderick Garcia APRN - Last Filed: 07/06/24 17:33> Social History Social History: Social History Smoking status: Never smoker Second hand tobacco smoke exposure: No Alcohol intake: current Drinks per week: 1 Substance use: never Substance use type: does not use Do You Feel Safe in your Home?: Yes Lack of Transportation: No Lack of Food: Never True Current Housing: I Have Housing Concerned About Future Housing: No Difficulty Paying Gas/Electric Bills: No Difficulty Paying for
== END 2024-07-06 17:26 | disposition home or self-care (01) ==
PROVIDERS: Emergency Provider Nurse Practitioner Family; PCP Family Medicine
DX: M23.92 Unspecified internal derangement of left knee (principal); M25.562 Pain in left knee; E05.90 Thyrotoxicosis, unspecified without thyrotoxic crisis or storm; E03.9 Hypothyroidism, unspecified
CPT/HCPCS: 73564; 99213; G0463

== ENCOUNTER 2024-07-21 16:01 | Outpatient (CLI) | payer BC, SELFPAY ==
--- NOTE | ~2024-07-21 | MM_ITS ---
EXAMINATION: MM screening nidhi BI w vika HISTORY: Screening TECHNIQUE: Craniocaudal and mediolateral oblique 3-D tomosynthesis images were obtained and synthetic 2-D images were generated. CAD analysis was submitted and interpreted. COMPARISON: 06/02/2019 and 07/19/2023 BREAST PARENCHYMAL COMPOSITION: Not dense: There are scattered areas of fibroglandular density. FINDINGS: There is a focal asymmetry superiorly in the left breast on MLO view. The right breast is s table without evidence for malignancy. IMPRESSION: 1. Developing left breast asymmetry. 2. Additional mammographic views and possible breast ultrasound are recommended. BI-RADS Category 0: Incomplete: Needs additional imaging evaluation. Reviewed, dictated and finalized at location B. IMPRESSION: 1. Developing left breast asymmetry. 2. Additional mammographic views and possible breast ultrasound are recommended . BI-RADS Category 0: Incomplete: Needs additional imaging evaluation.
== END 2024-07-21 16:02 | disposition home or self-care (01) ==
LOC: MICIMG 16:02
PROVIDERS: PCP Family Medicine; Visit Provider Family Medicine
DX: Z12.31 Encounter for screening mammogram for malignant neoplasm of breast (principal)
CPT/HCPCS: 77063; 77067

== ENCOUNTER 2024-09-03 07:52 | Outpatient (CLI) | payer BC, SELFPAY ==
--- NOTE | ~2024-09-03 | MM_ITS ---
EXAMINATION: MM diagnostic nidhi LT w vika HISTORY: Left breast asymmetry TECHNIQUE: Additional 3-D tomosynthesis images of the left breast were performed and synthetic 2-D im ages were generated. CAD analysis was submitted and interpreted. COMPARISON: 07/21/2024, 07/19/2023, 06/02/2019 BREAST PARENCHYMAL COMPOSITION:Not Dense. There are scattered areas of fibroglandular density. FINDINGS: Area of asymmetry effaces with spot compression. No persistent mass lesion or distortion se en. No suspicious microcalcification. IMPRESSION: No mammographic evidence for malignancy. BI-RADS Category 1: Negative Reviewed, dictated and finalized at location . [employer]
== END 2024-09-03 07:53 | disposition home or self-care (01) ==
LOC: MICIMG 07:53
PROVIDERS: PCP Family Medicine; Visit Provider Physician Assistant Medical
DX: R92.8 Other abnormal and inconclusive findings on diagnostic imaging of breast (principal)
CPT/HCPCS: 77061; 77065; G0279

== ENCOUNTER 2024-09-25 12:33 | Outpatient (CLI) | payer BC, SELFPAY ==
--- NOTE | ~2024-09-25 | MR_ITS ---
MRI of the left knee Clinical history: Pain Technique: Coronal proton density and proton density-weighted images, sagittal proton-density and T2 fat-sat images, and axial proton-density fat-saturated images were acquired. Findings: Anterior and posterior cruciate ligaments are intact. Medial collateral ligament and the la teral collateral ligament complex are intact. Popliteus tendon is intact. There is radial tear at the posterior root of the medial meniscus. There is additional probable flap tear of the body segment of the medial meniscus. No lateral meniscal tear seen. There is patchy high-grade chondromalacia the patellar apex and medial facet. There is mild chondroma lacia the femoral trochlea. There is mild chondral thinning in the medial lateral compartment. Extensor mechanism is intact. Moderate joint effusion present. No significant Rosenberg's cyst. Impression: Radial tear at the posterior root the medial meniscus. Additional flap tear at the body segment of the medial meniscus. Chondromalacia, as above, worst at the patellar apex/medial facet. Moderate joint effusion. Reviewed, dictated and finalized at [facility]. [employer] SPECIALIST Impression: Radial tear at the posterior root the medial meniscus. Additional flap tear at the body segment of the medial meniscus. Chondromalacia, as above, worst at the patellar apex/medial facet. Moderate joint effusion.
== END 2024-09-25 12:34 | disposition home or self-care (01) ==
PROVIDERS: PCP Family Medicine; Visit Provider Nurse Practitioner Family
DX: M25.462 Effusion, left knee (principal)
CPT/HCPCS: 73721

== ENCOUNTER 2024-12-05 10:33 | Emergency (ER) | payer BC, SELFPAY ==
--- NOTE | 2024-12-05 10:34 | ED.EYEPROB ---
HPI - Eye Problem General Chief complaint: Eye Problems Stated complaint: Eye Irritation Time Seen by Provider: 12/05/24 10:40 Source: patient, RN notes reviewed and old records reviewed Mode of arrival: ambulatory Limitations: no limitations History of Present Illness HPI Narrative: 64-year-old female presents to the [facility] with eye irritation bilateral left worse than right. Reports symptoms started as itchy last night. This morning reports that they were ?goopy? and crusted over this morning. Denies any trauma to the eye. Denies any blurry vision or change in vision Onset (ago): hour(s) (12-13 hours) Related Data Allergies Allergy/AdvReac Type Severity Reaction Status Date / Time sulfamethizole Allergy Severe Hives Verified 10/06/24 14:40 sulfamethoxazole Allergy Severe HIVES Verified 10/06/24 14:40 terbinafine Allergy Severe Hives Verified 10/06/24 14:40 trimethoprim Allergy Severe Hives Verified 10/06/24 14:40 Review of Systems Review of Systems: All systems reviewed & are unremarkable except as noted in HPI and below Constitutional: Constitutional: Reports no additional constitutional complaints Eyes: Eyes: Reports as per HPI ENT: Reports system reviewed and no additional complaints, except as documented Cardiovascular: Cardiovascular: Reports no additional cardiovascular complaints, Denies chest pain and Denies dyspnea Respiratory: Respiratory: Reports no additional respiratory complaints, Denies chest congestion, Denies cough and Denies dyspnea Musculoskeletal: Musculoskeletal: Reports no additional musculoskeletal complaints Integumentary/Breasts: Skin/Breast: Reports system reviewed and no additional complaints, except as docu PMFSH Past Medical History Medical History Medial meniscus tear Effusion of knee joint Left knee injury Left knee pain Vertigo Elevated hemoglobin A1c Encounter for wellness examination Edema of left ankle Hematoma of left knee region Insufficiency fracture of medial femoral condyle Acute medial meniscus tear of right knee Degenerative arthritis of right knee Chondromalacia of right patellofemoral joint Carpal tunnel syndrome of right wrist Carpal tunnel syndrome of left wrist Hyperthyroidism Screening mammogram for high-risk patient Hormone imbalance Screening cholesterol level Skin lesion of left leg Hypothyroidism Surgical History Surgical History History of carpal tunnel surgery Left 08/2021 Right 09/[address] Strauss History of ankle surgery Left ganglion cyst excision 07/2019 Dr. Rashid. Family History Family History Father CHF (congestive heart failure) Mother CHF (congestive heart failure) Sibling Hyperlipidemia Hypertension Thyroid condition Other Family history of coronary artery disease Heart disease Social History Social History Smoking status: Never smoker Second hand tobacco smoke exposure: No Alcohol intake: current Drinks per week: 1 Substance use: never Substance use type: does not use Do You Feel Safe in your Home?: Yes Lack of Transportation: No Lack of Food: Never True Current Housing: I Have Housing Concerned About Future Housing: No Difficulty Paying Gas/Electric Bills: No Difficulty Paying for Meds: No Currently Unemployed: No Education: Associate Degree Living arrangements: with family Occupation/Education: occupation 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 Gender identity (if verbalized by the patient): Female Spiritual care concerns: No Comments At the time of my signature, I reviewed and agree with the nursing past medical, surgical, social, and family history. There is no relevant family history pertinent to the patient complaint. Exam Const: General: cooperative, healthy appearing, comfortable, no acute distress, well developed, alert and well nourished Nutritional Appearance: well nourished Orientation/consciousness: patient oriented x3 Limitations: no limitations HENMT: Head: normal to inspection Ears: hearing grossly normal bilaterally, external ears normal, TM's normal bilaterally, EAC's normal, mastoids normal and no periauricular adenopathy Mouth: Yes Normal oral and palatal mucosa present, Yes lip normal, Yes tongue normal and Yes moist mucous membranes Eyes: General: appearance normal, both eyes and all related structures Alignment and Position: alignment normal Eyelids: eyelids normal Conjunctivae: conjunctival abnormality bilateral conjunctival injection localized; without discharge Sclera: sclerae normal Pupils: Equal, round and reactive pupils present EOM: EOMs intact bilaterally Direct Ophthalmoscopy: normal light reflex and no photophobia Neck: Neck: normal visual inspection, full ROM, no lymphadenopathy and no meningeal signs Chest: Chest palpation & inspection: normal inspection of the chest Resp: Effort & Inspection: normal respiratory effort and able to speak in complete sentences Auscultation: clear to auscultation bilaterally, no crackles, no rales, no rhonchi and no wheezes Cardio: Rate: regular rate Skin: General skin exam: normal color and no rashes or lesions noted Neuro: General: patient oriented x3, gait normal, moves all extremities and no meningeal signs Cognition (Neuro): normal cognition Speech: normal speech Gait exam (Neuro): Normal gait present Extrem: General: normal to inspection, full ROM, capillary refill normal and normal gait Psych: Appearance: grossly normal and well kempt Mental Status: mental status grossly normal Speech and movement: Normal speech and movement present and Clear speech present Affect: normal affect Attitude: cooperative Course Course Level of Care: Express Care Visit Vital Signs Vital signs: Vital Signs Temperature 98.8 F 12/05/24 10:42 Pulse Rate 105 H 12/05/24 10:42 Respiratory Rate 16 12/05/24 10:42 Blood Pressure 114/63 12/05/24 10:42 Pulse Oximetry 98 12/05/24 10:42 Oxygen Delivery Room Air 12/05/24 10:42 Temperature 98.8 F 12/05/24 10:42 Pulse Rate 105 H 12/05/24 10:42 Respiratory Rate 16 12/05/24 10:42 Blood Pressure 114/63 12/05/24 10:42 Pulse Oximetry 98 12/05/24 10:42 Oxygen Delivery Room Air 12/05/24 10:42 Reviewed MDM - Eye Problem MDM Narrative Medical decision making narrative: Patient sitting comfortably in exam room. Nontoxic, vitals stable. Patient in no acute distress. Patient presents with redness, crusted eyelid this morning. Mild increase pinkness to the left eye, possible conjunctivitis, will treat with antibiotics Patient appropriate for outpatient treatment with close follow Discharge instructions reviewed with patient, as well as provided in writing per nursing staff. The instructions also include specific and strict return/GO TO THE ER as well as f/u information. All questions have been answered, and the patient deny any further questions with discharge and discharge plan. Some parts of this dictation were generated by voice recognition software and may contain typographical and/or grammatical inaccuracies. Differential Diagnosis Differential diagnosis: Likely corneal abrasion and conjunctivitis Critical Care Time Critical Care Time Critical Care Time: No Discharge Plan Discharge Clinical Impression: Conjunctivitis Qualifiers: Conjunctivitis type: acute Acute conjunctivitis type: unspecified Patient Disposition: Home, Self-Care Condition: Stable Instructions: Antibiotic Form, Conjunctivitis (ED) Additional Instructions: Apply a cool, damp compress to your affected eye. Be sure to use a clean cloth each time to avoid spreading the infection. Gently clean your eyes with wet cotton balls or pads to remove crusty buildup or irritating discharge. Use eye ointment as prescribed Maintain good hygiene and only touch your eyes with freshly washed hands. You should follow-up with an eye doctor within the next 72 hours [facility]: [place]- [phone] [facility] [phone] [facility] [phone] [place]: [facility] [phone] or [phone] [facility] [phone] [facility] [phone] [facility] [phone] [facility]- [phone] Patient Language: Icelandic Prescriptions: New erythromycin 5 mg/gram (0.5 %) ointment 0.5 inch EACH EYE QID 5 Days Qty: 3.5 0RF No Action levothyroxine [Synthroid] 88 mcg tablet 88 mcg PO DAILY Qty: 90 3RF hydroxyzine HCl 50 mg tablet See Rx Instructions .ROUTE .COMPLEX Qty: 180 3RF Dose Instruction: TAKE 1 TABLET TWICE A DAY Rx Instructions: TAKE 1 TABLET TWICE A DAY meclizine 25 mg tablet 25 mg PO TID PRN (Reason: dizziness) Qty: 20 0RF Follow-up/Referrals: Geoffrey Chambers MD [Primary Care Provider] - 2 Weeks ([facility] follow-up) Stand Alone Forms: Work/School Release IP Time of Disposition: 10:51
[2024-12-05 10:42] VITALS: BP 114/63; PULSE 105; RESP 16; TEMP 37.1; O2SAT 98
== END 2024-12-05 11:00 | disposition home or self-care (01) ==
PROVIDERS: Emergency Provider Nurse Practitioner; PCP Family Medicine
DX: H10.30 Unspecified acute conjunctivitis, unspecified eye (principal); E03.9 Hypothyroidism, unspecified
CPT/HCPCS: 99213; G0463

== ENCOUNTER 2025-02-19 14:22 | Emergency (ER) | payer BC, SELFPAY ==
--- NOTE | ~2025-02-19 | XR_ITS ---
EXAMINATION: XR knee RT 3V DATE: 02/19/2025 14:56 INDICATION: Twisting right knee injury TECHNIQUE: Anteroposterior, oblique and crosstable lateral views of the right knee were obtained COMPARISON: None. FINDINGS: Alignment is normal. No fracture. Joint spaces appear normal on nonweightbearing imaging. No joint e ffusion/layering lipohemarthrosis. Soft tissues are unremarkable. IMPRESSION: 1. Negative right knee radiographs. Reviewed, dictated and finalized at location A.
[2025-02-19 14:23] VITALS: BP 155/84; PULSE 84; RESP 16; TEMP 36.8; O2SAT 100
--- NOTE | 2025-02-19 15:27 | ED.LOWEXIN ---
HPI - Extremity Injury (Lower) General Chief Complaint: Extremity Injury, Upper Stated Complaint: Injury to right knee-twisted Time Seen by Provider: 02/19/25 15:16 History of Present Illness HPI Narrative: Pt planted and twisted and felt pain in right knee. Pt has been takiong tylenol and motrin and using ice and elevating. Pt has meniscal injury in left knee and this feels similar. Pt seeing Dr Mayer for this and called office today and can not see her until March so was told to come to ER. Related Data Allergies Allergy/AdvReac Type Severity Reaction Status Date / Time sulfamethizole Allergy Severe Hives Verified 02/19/25 14:33 sulfamethoxazole Allergy Severe HIVES Verified 02/19/25 14:33 terbinafine Allergy Severe Hives Verified 02/19/25 14:33 trimethoprim Allergy Severe Hives Verified 02/19/25 14:33 Review of Systems Review of Systems: All systems reviewed & are unremarkable except as noted in HPI and below PMFSH Past Medical History Medical History (Updated 02/19/25 @ 15:33 by Erica Ryan III, DO) Constipation Acute knee pain Acute foot pain History of stress fracture Anemia, unspecified Medial meniscus tear Effusion of knee joint Left knee injury Left knee pain Vertigo Elevated hemoglobin A1c Encounter for wellness examination Edema of left ankle Hematoma of left knee region Insufficiency fracture of medial femoral condyle Acute medial meniscus tear of right knee Degenerative arthritis of right knee Chondromalacia of right patellofemoral joint Carpal tunnel syndrome of right wrist Carpal tunnel syndrome of left wrist Hyperthyroidism Screening mammogram for high-risk patient Hormone imbalance Screening cholesterol level Skin lesion of left leg Hypothyroidism Surgical History Surgical History History of carpal tunnel surgery Left 08/2021 Right 09/[address] Strauss History of ankle surgery Left ganglion cyst excision 07/2019 Dr. Rashid. Family History Family History Father CHF (congestive heart failure) Mother CHF (congestive heart failure) Sibling Hyperlipidemia Hypertension Thyroid condition Other Family history of coronary artery disease Heart disease Social History Social History Smoking status: Never smoker Second hand tobacco smoke exposure: No Alcohol intake: current Drinks per week: 1 Substance use: never Substance use type: does not use Do You Feel Safe in your Home?: Yes Lack of Transportation: No Lack of Food: Never True Current Housing: I Have Housing Concerned About Future Housing: No Difficulty Paying Gas/Electric Bills: No Difficulty Paying for Meds: No Currently Unemployed: No Education: Associate Degree Living arrangements: with family Occupation/Education: occupation 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 Gender identity (if verbalized by the patient): Female Spiritual care concerns: No Exam Const: General: healthy appearing and no acute distress Nutritional Appearance: well nourished Orientation/consciousness: patient oriented x3 Limitations: no limitations Resp: Effort & Inspection: normal respiratory effort Auscultation: clear to auscultation bilaterally Cardio: Rate: regular rate Rhythm: regular rhythm GI: GI Palp: Yes Soft to palpation Auscultation: normal bowel sounds Skin: General skin exam: normal color Rashes: no rashes Wounds: no wounds Neuro: General: patient oriented x3, moves all extremities, no meningeal signs and no focal motor deficits Extrem: Other: tender over medial joint line with swelling below knee Psych: Mental Status: mental status grossly normal Course Vital Signs Vital signs: Vital Signs Temperature 98.2 F 02/19/25 14:23 Pulse Rate 84 02/19/25 14:23 Respiratory Rate 16 02/19/25 14:23 Blood Pressure 155/84 H 02/19/25 14:23 Pulse Oximetry 100 02/19/25 14:23 Temperature 98.2 F 02/19/25 14:23 Pulse Rate 84 02/19/25 14:23 Respiratory Rate 16 02/19/25 14:23 Blood Pressure 155/84 H 02/19/25 14:23 Pulse Oximetry 100 02/19/25 14:23 MDM - Extremity Injury (Lower) MDM Narrative Medical decision making narrative: pt has joint line tenderness on exam and suspect meniscal injury will get x ray to rule out fx/ x ray neg. home to follow up with ortho. Discharge Plan Discharge Clinical Impression: Acute injury of right knee cartilage Patient Disposition: Home Condition: Stable Instructions: Antibiotic Form, Meniscus Tear (ED) Patient Language: [place]orese Prescriptions: No Action hydroxyzine HCl 50 mg tablet See Rx Instructions .ROUTE .COMPLEX Qty: 180 3RF Dose Instruction: TAKE 1 TABLET TWICE A DAY Rx Instructions: TAKE 1 TABLET TWICE A DAY meclizine 25 mg tablet 25 mg PO TID PRN (Reason: dizziness) Qty: 20 0RF levothyroxine [Synthroid] 88 mcg tablet 88 mcg PO DAILY Qty: 90 3RF Follow-up/Referrals: Sergei Mayer MD [Physician] - Geoffrey Chambers MD [Primary Care Provider] -
--- OUTSIDE RECORDS SUMMARY | 2025-02-20 14:26 | XMS_ITS | Clinical Summary ---
Author Organization [facility] Address [address] [place] [address] Care Team Providers Care Furnace Operator Name Role Phone No, Physician Unavailable Geoffrey Chambers MD Primary Care Provider + [phone] Allergies Active Allergy Reactions Criticality Noted Date Comments Sulfamethoxazole-Trimethoprim Hives,Itching,Rash Medium 01/03/2021 Terbinafine Hives,Itching,Rash Medium 01/03/2021 Medications SYNTHROID 100 mcg tablet 01/10/2019 Active griseofulvin (DENISE-PEG) 250 mg tablet 0 02/10/2019 Active fluticasone propionate (FLONASE) 50 mcg/actuation nasal spray 2 sprays Active hydrOXYzine (ATARAX) 50 mg tablet 11/26/2020 Active predniSONE (DELTASONE) 20 mg tablet TAKE 3 TABLETS BY MOUTH EVERY DAY FOR 5 DAYS 02/05/2021 Active Active Problems Problem Noted Date Diagnosed Date Vertigo 07/12/2009 Resolved Problems Problem Noted Date Diagnosed Date Resolved Date Basal cell carcinoma (BCC) o f skin of left lower extremity including hip 11/11/2020 03/10/2021 Surgical History Surgery Date Site/Laterality Comments GANGLION CYST EXCISION ANKLE SURGERY Left Medical History Medical History Date Comments Thyroid disease Urticaria Basal cell carcinoma (BCC) o f skin of left lower extremity including hip 11/11/2020 Family History Medical History Relation Name Comments Heart disease Father Cancer Maternal Grandmother Heart disease Mother Relation Name Status Comments Father Maternal Grandmother Mother Social History Tobacco Use Types Packs/Day Years Used Date Smoking Tobacco: Never Smokeless Tobacco: Never Alcohol Use Standard Drinks/Week Comments Yes 0 (1 standard drink = 0.6 oz pur e alcohol) Personal Safety Answer Date Recorded Getting School Help Needed Not on file 01/04 Comments Unknown Sex and Gender Information Value Date Recorded Sex Assigned at Not on file Legal Sex Female 8:59 AM CDT Gender Identity Not on file Sexual Orientation Not on file Obstetrics History Last Filed Vital Signs Vital Sign Reading Time Taken Comments Blood Pressure - - Pulse - - Temperature - - Respiratory Rate - - Oxygen Saturation - - Inhaled Oxygen Concentration - - Weight 72.6 kg (160 lb) 11/11/2020 3:29 PM SOFTWARE DEVELOPMENT INTERN Height 156.2 cm (5' 1.5 ) 11/11/2020 3:29 PM SOFTWARE DEVELOPMENT INTERN Body Mass Index 29.74 11/11/2020 3:29 PM SOFTWARE DEVELOPMENT INTERN Plan of Treatment Not on file Insurance [facility] [place] [id number] [employer] CHOICE [employer] OOS Care Teams Furnace Operator Relationship Specialty Start Date End Date Geoffrey Chambers MD PCP - General Family Medicine 03/10/21 No, Physician 03/18/19
--- OUTSIDE RECORDS SUMMARY | 2025-02-20 14:26 | XMS_ITS | Referral Summary ---
Author Organization [facility] Address [address] [place] [address] Care Team Providers Care Jewellery Designer Name Role Phone No, Physician Unavailable Geoffrey Chambers MD Primary Care Provider + [phone] Allergies Active Allergy Reactions Criticality Noted Date [...] left lower extremity including hip 11/11/2020 03/10/2021 Social History Tobacco Use Types Packs/Day Years [...] on file Sexual Orientation Not on file Last Filed Vital Signs Vital Sign Reading Time Taken Comments Blood Pressure - - Pulse - - Temperature - - Respiratory Rate - - Oxygen Saturation - - Inhaled Oxygen Concentration - - Weight 72.6 kg (160 lb) 11/11/2020 3:29 PM AUTOMATIC PACKER OPERATOR Height 156.2 cm (5' 1.5 ) 11/11/2020 3:29 PM AUTOMATIC PACKER OPERATOR Body Mass Index 29.74 11/11/2020 3:29 PM AUTOMATIC PACKER OPERATOR Plan of Treatment Not on file Insurance [employer] CHOICE [employer] OOS Care Teams Jewellery Designer Relationship Specialty Start Date End Date Geoffrey Chambers MD PCP - General Family Medicine 03/10/21 No, Physician 03/18/19
--- OUTSIDE RECORDS SUMMARY | 2025-02-20 14:53 | XMS_ITS | Referral Summary ---
Author Organization [facility] Address [address] [place] [address] Care Team Providers Care Receivables Specialist Name Role Phone No, Physician Unavailable Geoffrey Chambers MD Primary Care Provider + [phone] Allergies Active Allergy Reactions Criticality Noted Date [...] 72.6 kg (160 lb) 11/11/2020 3:29 PM HAND CANDY MOLDER Height 156.2 cm (5' 1.5 ) 11/11/2020 3:29 PM HAND CANDY MOLDER Body Mass Index 29.74 11/11/2020 3:29 PM HAND CANDY MOLDER Plan of Treatment Not on file Insurance [employer] CHOICE [employer] OOS Care Teams Receivables Specialist Relationship Specialty Start Date End Date Geoffrey Chambers MD PCP - General Family Medicine 03/10/21 No, Physician 03/18/19
--- OUTSIDE RECORDS SUMMARY | 2025-02-20 14:53 | XMS_ITS | Clinical Summary ---
Author Organization [facility] Address [address] [place] [address] Care Team Providers Care Cardiac Rn Name Role Phone No, Physician Unavailable Geoffrey Chambers MD Primary Care Provider + [phone] Allergies Active Allergy Reactions Criticality Noted Date [...] 72.6 kg (160 lb) 11/11/2020 3:29 PM BEAM WORKER Height 156.2 cm (5' 1.5 ) 11/11/2020 3:29 PM BEAM WORKER Body Mass Index 29.74 11/11/2020 3:29 PM BEAM WORKER Plan of Treatment Not on file Insurance [facility] [place] [id number] [employer] CHOICE [facility]ICE [facility] Address: [facility] [id number] [place] [address] [employer] OOS Care Teams Cardiac Rn Relationship Specialty Start Date End Date Geoffrey Chambers MD PCP - General Family Medicine 03/10/21 No, Physician 03/18/19
== END 2025-02-19 15:46 | disposition home or self-care (01) ==
PROVIDERS: Emergency Provider Emergency Medicine; PCP Family Medicine
DX: S89.91XA Unspecified injury of right lower leg, initial encounter (principal); E03.9 Hypothyroidism, unspecified; Z86.2 Personal history of diseases of the blood and blood-forming organs and certain disorders involving the immune mechanism; Z79.899 Other long term (current) drug therapy; X50.9XXA Other and unspecified overexertion or strenuous movements or postures, initial encounter
CPT/HCPCS: 73562; 99283

== ENCOUNTER 2025-03-17 09:18 | Outpatient (CLI) | payer BC, SELFPAY ==
--- NOTE | ~2025-03-17 | MR_ITS ---
MRI of the right knee Clinical history: Pain Technique: Coronal proton density and proton density-weighted images, sagittal proton-density and T2 fat-sat images, and axial proton-density fat-saturated images were acquired. Findings: Anterior and posterior cruciate ligaments are intact. Medial collateral ligament and the la teral collateral ligament complex are intact. Popliteus tendon intact. There is complex tearing of the posterior horn and body of the medial meniscus, with both horizontal and vertical tear components. Lateral meniscus is intact, without evidence of tear. There is grade 4 chondral lesion at the patellar apex with focal subchondral cystic change. There is extensive mild to moderate chondromalacia of the medial femoral condyle. Extensor mechanism is intact. Small joint effusion present. Small Rosenberg cyst present. Impression: Complex tearing of the posterior horn and body of medial meniscus, as detailed above. 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 Small joint effusion and small Rosenberg's cyst. Reviewed, dictated and finalized at location . Impression: Complex tearing of the posterior horn and body of medial meniscus, as detailed above. 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 Small joint effusion and small Rosenberg's cyst.
== END 2025-03-17 09:19 | disposition home or self-care (01) ==
LOC: MICIMG 09:19
PROVIDERS: PCP Family Medicine; Visit Provider Nurse Practitioner Family
DX: M25.461 Effusion, right knee (principal); M71.21 Synovial cyst of popliteal space [Baker], right knee; S83.231A Complex tear of medial meniscus, current injury, right knee, initial encounter; X58.XXXA Exposure to other specified factors, initial encounter
CPT/HCPCS: 73721

== ENCOUNTER 2025-04-22 01:45 | Day surgery (SDC) | payer BC, SELFPAY ==
[2025-04-19 10:51] VITALS: BMI 29.2
--- NOTE | 2025-04-19 10:58 | SUR.PREOP ---
Report to the Outpatient Waiting Room, entrance under the green pavilion located off [facility], at time 1130 on date 04/22/25. Planned Procedure Time:1330.? Time changes happen often and if your time is changed the preop area will call you the afternoon before. - You and your visitor will be asked to self-screen and do not enter if you have any COVID symptoms. Please call surgeon if you need to reschedule. - A mask is optional within the hospital at this time. Patients may have clear liquids (water, carbonated beverages, clear teas, apple juice) until 3 hours prior to surgery with a maximum of 20 ounces. - No food from midnight until time of surgery and no smoking, or chewing tobacco (or any form of nicotine). No chewing gum, candy or mints. - Infants may have breast milk until 4 hours before surgery, infant formula 6 hours prior to surgery. - Children will be allowed to drink immediately following surgery.? If applicable, please bring a bottle or sippy cup to assist with drinking. Juice, water, soda, and popsicles are readily available.? For infants on formula, please bring formula the day of surgery.? Pacifiers are allowed. Take only the following medications with a SIP of water on the morning of surgery: levothyroxine DO NOT STOP ANY OF YOUR OTHER PRESCRIPTION MEDICATIONS PRIOR TO SURGERY EXCEPT THE FOLLOWING Hold all vitamins and supplements for 3 days per anesthesiologist. Medications to discontinue per physician Date to take last dose Please no make-up, nail american, hairspray, perfume, deodorant, or body powder the day of surgery.? No jewelry (including any body piercings) or valuables the day of surgery, leave them at home.? Please take a shower or bath the night before, or the morning of, surgery with an antibacterial soap.? Wear comfortable, loose fitting clothing.? Children are encouraged to wear pajamas. - Jewelry must be removed prior to entering the operating room.? Rings and piercings that are not removed may be cut off. - The hospital will not accept responsibility for valuables.? - Please leave all valuables, including medications, at home the day of surgery. If you are going home after surgery, a licensed shuttle truck driver must drive you home.? - NO public transportation without another adult if you receive anesthesia. - We recommend that an adult stay with you for 24 hours following discharge. - We also recommend that you do not drive, make important decision, drink alcoholic beverages, or take any drugs that were not prescribed by your health care provider for at least 24 hours after your discharge time. For Pediatric surgeries, we recommend two adults accompany the child home. Follow any additional instructions given to you from your surgeon. Telephone instructions given to _patient_and asked if any additional questions and then verbalized understanding. Patient advised to call surgeon office or pre surgery nurse liaison [phone] if any additional questions.
[2025-04-22] VITALS (8 sets, daily range): BP systolic 112–160; BP diastolic 62–99; PULSE 70–103; RESP 14–20; TEMP 36.3–36.8; O2SAT 91–100
--- OUTSIDE RECORDS SUMMARY | 2025-04-22 01:48 | XMS_ITS | Referral Summary ---
Author Organization [facility] Address [address] [place] [address] Care Team Providers Care Patch Setter Name Role Phone No, Physician Unavailable Geoffrey Chambers MD Primary Care Provider + [phone] Allergies Active Allergy Reactions Criticality Noted Date [...] 72.6 kg (160 lb) 11/11/2020 3:29 PM TUNNEL KILN REPAIRER Height 156.2 cm (5' 1.5) 11/11/2020 3:29 PM TUNNEL KILN REPAIRER Body Mass Index 29.74 11/11/2020 3:29 PM TUNNEL KILN REPAIRER Plan of Treatment Not on file Insurance [employer] CHOICE [employer] OOS Care Teams Patch Setter Relationship Specialty Start Date End Date Geoffrey Chambers MD PCP - General Family Medicine 03/10/21 No, Physician 03/18/19
--- OUTSIDE RECORDS SUMMARY | 2025-04-22 01:48 | XMS_ITS | Clinical Summary ---
Author Organization [facility] Address [address] [place] [address] Care Team Providers Care Insurance Actuary Name Role Phone No, Physician Unavailable Geoffrey Chambers MD Primary Care Provider + [phone] Allergies Active Allergy Reactions Criticality Noted Date [...] 72.6 kg (160 lb) 11/11/2020 3:29 PM SOLAR FIELD INSTALLATION CREW MEMBER Height 156.2 cm (5' 1.5) 11/11/2020 3:29 PM SOLAR FIELD INSTALLATION CREW MEMBER Body Mass Index 29.74 11/11/2020 3:29 PM SOLAR FIELD INSTALLATION CREW MEMBER Plan of Treatment Not on file Insurance [facility] [place] [id number] [employer] CHOICE [employer] OOS Care Teams Insurance Actuary Relationship Specialty Start Date End Date Geoffrey Chambers MD PCP - General Family Medicine 03/10/21 No, Physician 03/18/19
--- NOTE | 2025-04-22 11:08 | WPDHPUPDATE1 ---
History and Physical Update Update Date/Time: 04/22/25 11:08 History and Physical has been reviewed, including an updated exam of the patient. There are NO changes in the patient's condition. Risks, benefits, and alternatives have been discussed and questions answered. Patient agrees to proceed with procedure.
[2025-04-22] MEDS: LACTATED RINGERS 1,000 ML 30 ML IV CONT ×2 (12:30→15:01)
[2025-04-22] MEDS: KETOROLAC 15 MG/ML VIAL (*BKC) IV PUSH (12:45)
[2025-04-22] MEDS: ACETAMINOPHEN 500 MG TABLET 1000 MG PO (12:45)
--- NOTE | 2025-04-22 13:25 | P.PNAN_ITS ---
Anes - Initial Pre Proc Eval Procedure: Operation Date: 04/22/25 13:30 Proposed Procedures p Right Knee Arthroscopy, Debride Meniscus, Synovectomy with Chondroplasty - Sergei Mayer MD Date/Time: 04/22/25 13:25 Surgeon: Sergei Mayer MD Pre Op Diagnosis: rt knee pain, meniscus tear, chondromalacia,synovi Patient Data Age: 64 Gender: F Height: 1.52 m Weight: 69.8 kg Last Vital Signs Temp 36.8 C 04/22/25 11:45 Pulse 70 04/22/25 11:45 Resp 16 04/22/25 11:45 BP 149/71 H 04/22/25 11:45 Pulse Ox 100 04/22/25 11:45 O2 Del Method Room Air 04/22/25 11:45 Allergies Allergy/AdvReac Type Severity Reaction Status Date / Time sulfamethizole Allergy Severe Hives Verified 04/22/25 12:10 sulfamethoxazole Allergy Severe HIVES Verified 04/22/25 12:10 terbinafine Allergy Severe Hives Verified 04/22/25 12:10 trimethoprim Allergy Severe Hives Verified 04/22/25 12:10 Home Medications ?Medication ?Instructions ?Recorded ?Confirmed ?Type levothyroxine 88 mcg tablet 88 mcg PO DAILY #90 tabs 02/17/25 04/22/25 Rx (Synthroid) hydroxyzine HCl 50 mg tablet See Rx Instructions .Route 03/09/25 04/19/25 Rx .COMPLEX #180 tabs Patient hx anesthesia problems: none Family hx anesthesia problems: none Results Review: All pre-operative results and documents have been reviewed as part of the pre-operative evaluation. [facility] Past Medical History Medical History Tear of meniscus of knee joint Right knee pain Constipation Acute knee pain Acute foot pain History of stress fracture Anemia, unspecified Medial meniscus tear Effusion of knee joint Left knee injury Left knee pain Vertigo Elevated hemoglobin A1c Encounter for wellness examination Edema of left ankle Hematoma of left knee region Insufficiency fracture of medial femoral condyle Acute medial meniscus tear of right knee Degenerative arthritis of right knee Chondromalacia of right patellofemoral joint Carpal tunnel syndrome of right wrist Carpal tunnel syndrome of left wrist Hyperthyroidism Screening mammogram for high-risk patient Hormone imbalance Screening cholesterol level Skin lesion of left leg Hypothyroidism Surgical History Surgical History History of carpal tunnel surgery Left 08/2021 Right 09/[address] Strauss History of ankle surgery Left ganglion cyst excision 07/2019 Dr. Rashid. Family History Family History Father CHF (congestive heart failure) Mother CHF (congestive heart failure) Sibling Hyperlipidemia Hypertension Thyroid condition Other Family history of coronary artery disease Heart disease Social History Social History Smoking status: Never smoker Second hand tobacco smoke exposure: No Alcohol intake: current Drinks per week: 1 Substance use: never Substance use type: does not use Do You Feel Safe in your Home?: Yes Lack of Transportation: No Lack of Food: Never True Current Housing: I Have Housing Concerned About Future Housing: No Difficulty Paying Gas/Electric Bills: No Difficulty Paying for Meds: No Currently Unemployed: No Education: Associate Degree Living arrangements: with family Occupation/Education: occupation 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 Gender identity (if verbalized by the patient): Female Spiritual care concerns: No Anes - Eval Final PreProcedure Day of Procedure 04/22/25 13:25 Patient weight: obese Heart: regular rate and rhythm Lungs: clear to auscultation Airway: Mallampati scale class II Neurological: alert and oriented Last oral intake: >/= 8 hours ASA classification: II Emergent: no Anesthetic plan: proceed Anesthesia type and monitoring: general LMA and standard monitoring Results Review: All pre-operative results and documents have been reviewed as part of the pre- operative evaluation. Informed Consent: The patient's anesthetic plan and its attendant risks and benefits were discussed with the patient/family/POA. Questions were solicited and answers provided to the satisfaction of the patient/family/POA.
--- NOTE | 2025-04-22 13:33 | W.PM.PROC2 ---
Procedure Note - Detailed Date of Procedure 04/22/25 Pre-op Diagnosis rt knee pain, meniscus tear, chondromalacia,synovits Post-op Diagnosis Same Procedure Performed Right knee arthroscopy with partial medial meniscectomy; chondroplasty medial femoral condyle and patellofemoral articular surfaces; synovectomy of anterior fat pad, medial lateral gutters, peripatellar. Surgeon Sergei Mayer MD Director Targeted Marketing 1st enrichment assistant Anesthesia General Indications 64-year-old woman with right knee pain. Twisting injury several months ago. Conservative treatment cortisone injection, bracing, physical therapy and activity modification. Still with pain and MRI demonstrates medial meniscus tear with knee joint degenerative changes. Presents for operative treatment. Findings Left knee complex tear of the posterior horn of the medial meniscus, extensive synovitis involving medial and lateral gutter with hypertrophic anterior fat pad and impingement in the patellofemoral space, grade 4 chondromalacia patella, grade 3 chondromalacia of the femoral trochlea, grade 3 chondromalacia medial femoral condyle. ACL and PCL, lateral meniscus and lateral compartment intact. Description of Procedure Informed consent given by patient. Operative extremity marked in preoperative holding area. Patient received intravenous antibiotics. Patient brought to operating room and underwent general anesthetic by anesthesia team. Positioned supine on operating room table. Right leg placed into a posterior thigh leg becerra. Foot of the table dropped to 90? and right leg padded out of the field. Time-out performed confirming patient, site of surgery and plan. Left knee prepped and draped in usual sterile surgical fashion using ChloraPrep skin solution. Standard arthroscopic portals made by using a 11 blade knife for the anterior lateral portal 1st. Capsule penetrated bluntly. Camera and inflow started. The below operative findings noted. Intra-articular visualization used to position the anterior medial portal using 22 gauge spinal needle. A 11 blade knife used for the skin and blunt penetration of the capsule. 4.7 millimeter arthroscopic shaver introduced and partial medial meniscectomy of the loose and torn portion performed. Edge of meniscus completed with arthroscopic Wand. Arthroscopic Wand used to perform chondroplasty of the patellofemoral articulation and the medial femoral condyle. There is extensive wear on the femoral trochlea through most of the trochlea and extending over to the lateral condyle. This was debrided with the arthroscopic Wand and the shaver and finished with the Wand. Shaver reintroduced and a synovectomy performed of the anterior fat pad and extensive synovium as well as medial and lateral plica and medial and lateral gutters. The loop hypertrophic synovium which was impinging in the patellofemoral space was excised. Bleeding points coagulated with Wand. Knee inspected, no loose pieces noted. 1 liter of irrigant infused and suction out. Arthroscopic cannulas removed. Skin closed with 4 nylon interrupted suture. Local anesthetic with 0.25% Marcaine. Sterile dressing applied. Patient awoken from anesthesia, extubated and taken to recovery room in stable condition. All sponge needle and instrument counts correct at the end of the case. Estimated Blood Loss 5 Tourniquet Time Total Tourniquet Time: 0 Drains No Packing No Pathology None sent Complications None Condition Stable Disposition PACU [facility] Billing Surgery - Charge Forward: Surgery Billing ([id number], [id number])
[2025-04-22] MEDS: ceFAZolin 2 GM/D5W 50 ML 2 GM/50 ML BAG IVPB (13:43)
== END 2025-04-22 16:44 | disposition home or self-care (01) ==
PROVIDERS: PCP Family Medicine; Visit Provider Orthopaedic Surgery
PROC: (CPT 29870; principal; 2025-04-22 13:30)
DX: S83.231A Complex tear of medial meniscus, current injury, right knee, initial encounter (principal); M17.11 Unilateral primary osteoarthritis, right knee; M65.861 Other synovitis and tenosynovitis, right lower leg; M94.261 Chondromalacia, right knee; X50.0XXA Overexertion from strenuous movement or load, initial encounter; E66.9 Obesity, unspecified; Z68.30 Body mass index [BMI] 30.0-30.9, adult
CPT/HCPCS: 29881; 29876; A9270; J0690; J1885; J2003; J2250; J2405; J2704; J3010; J7120

== ENCOUNTER 2025-05-20 01:12 | Day surgery (SDC) | payer BC, SELFPAY ==
[2025-05-12 10:19] VITALS: BMI 28.8
--- NOTE | 2025-05-12 10:26 | PC.NURSE ---
Report to the Outpatient Waiting Room, entrance under the green pavilion located off [facility], at time _1100_ on date __05-20-25. Planned Procedure Time: 1300___.? Time changes happen often and if your time is changed the preop area will call you the afternoon before. - You and your visitor will be asked to self-screen and do not enter if you have any COVID symptoms. Please call surgeon if you need to reschedule. - A mask is optional within the hospital at this time. Patients may have clear liquids (water, carbonated beverages, clear teas, apple juice) until 3 hours prior to surgery with a maximum of 20 ounces. - No food from midnight until time of surgery and no smoking, or chewing tobacco (or any form of nicotine). No chewing gum, candy or mints. - Infants may have breast milk until 4 hours before surgery, infant formula 6 hours prior to surgery. - Children will be allowed to drink immediately following surgery.? If applicable, please bring a bottle or sippy cup to assist with drinking. Juice, water, soda, and popsicles are readily available.? For infants on formula, please bring formula the day of surgery.? Pacifiers are allowed. Take only the following medications with a SIP of water on the morning of surgery: thyroid DO NOT STOP ANY OF YOUR OTHER PRESCRIPTION MEDICATIONS PRIOR TO SURGERY EXCEPT THE FOLLOWING Hold all vitamins and supplements for 3 days per anesthesiologist. Medications to discontinue per physician n/a Date to take last dose____n/a____ Please no make-up, nail armenian, hairspray, perfume, deodorant, or body powder the day of surgery.? No jewelry (including any body piercings) or valuables the day of surgery, leave them at home.? Please take a shower or bath the night before, or the morning of, surgery with an antibacterial soap.? Wear comfortable, loose fitting clothing.? Children are encouraged to wear pajamas. - Jewelry must be removed prior to entering the operating room.? Rings and piercings that are not removed may be cut off. - The hospital will not accept responsibility for valuables.? - Please leave all valuables, including medications, at home the day of surgery. If you are going home after surgery, a licensed cdl dedicated truck driver must drive you home.? - NO public transportation without another adult if you receive anesthesia. - We recommend that an adult stay with you for 24 hours following discharge. - We also recommend that you do not drive, make important decision, drink alcoholic beverages, or take any drugs that were not prescribed by your health care provider for at least 24 hours after your discharge time. For Pediatric surgeries, we recommend two adults accompany the child home. Follow any additional instructions given to you from your surgeon. Telephone instructions given to __PATIENT___and asked if any additional questions and then verbalized understanding. Patient advised to call surgeon office or pre surgery nurse liaison [phone] if any additional questions.
[2025-05-20] VITALS (8 sets, daily range): BP systolic 120–146; BP diastolic 63–94; PULSE 78–87; RESP 14–24; TEMP 36.3–36.4; O2SAT 96–100
--- OUTSIDE RECORDS SUMMARY | 2025-05-20 01:14 | XMS_ITS | Referral Summary ---
Author Organization [facility] Address [address] [place] [address] Care Team Providers Care Multiple Resaw Operator Name Role Phone No, Physician Unavailable Geoffrey Chambers MD Primary Care Provider + [phone] Allergies Active Allergy Reactions Criticality Noted Date [...] 72.6 kg (160 lb) 11/11/2020 3:29 PM DIRECTOR OF CONTRACTS Height 156.2 cm (5' 1.5) 11/11/2020 3:29 PM DIRECTOR OF CONTRACTS Body Mass Index 29.74 11/11/2020 3:29 PM DIRECTOR OF CONTRACTS Plan of Treatment Not on file Insurance [employer] CHOICE [employer] OOS Care Teams Multiple Resaw Operator Relationship Specialty Start Date End Date Geoffrey Chambers MD PCP - General Family Medicine 03/10/21 No, Physician 03/18/19
--- OUTSIDE RECORDS SUMMARY | 2025-05-20 01:14 | XMS_ITS | Clinical Summary ---
Author Organization [facility] Address [address] [place] [address] Care Team Providers Care Credentials Specialist Name Role Phone No, Physician Unavailable Geoffrey Chambers MD Primary Care Provider + [phone] Allergies Active Allergy Reactions Criticality Noted Date [...] 72.6 kg (160 lb) 11/11/2020 3:29 PM PHOTOGRAPHIC DOUBLE Height 156.2 cm (5' 1.5) 11/11/2020 3:29 PM PHOTOGRAPHIC DOUBLE Body Mass Index 29.74 11/11/2020 3:29 PM PHOTOGRAPHIC DOUBLE Plan of Treatment Not on file Insurance [facility] [place] [id number] [employer] Care Teams Credentials Specialist Relationship Specialty Start Date End Date Geoffrey Chambers MD PCP - General Family Medicine 03/10/21 No, Physician 03/18/19
[2025-05-20] MEDS: LACTATED RINGERS 1,000 ML 30 ML IV CONT ×2 (11:02→13:41)
[2025-05-20] MEDS: KETOROLAC 15 MG/ML VIAL (*BKC) IV PUSH (11:04)
[2025-05-20] MEDS: ACETAMINOPHEN 500 MG TABLET 1000 MG PO (11:04)
--- NOTE | 2025-05-20 12:02 | WPDHPUPDATE1 ---
History and Physical Update Update Date/Time: 05/20/25 12:02 History and Physical has been reviewed, including an updated exam of the patient. There are NO changes in the patient's condition. Risks, benefits, and alternatives have been discussed and questions answered. Patient agrees to proceed with procedure.
--- NOTE | 2025-05-20 12:34 | WPDANESEPPF ---
Anes - Initial Pre Proc Eval Procedure: Operation Date: 05/20/25 13:00 Proposed Procedures p Left Knee Arthroscopy, Debride Meniscus Synovectomy Chondroplasty, Proceed As Indicated - Sergei Mayer MD Date/Time: 05/20/25 12:34 Surgeon: Sergei Mayer MD Pre Op Diagnosis: lt knee pain, med meniscus tear Patient Data Age: 64 Gender: F Height: 1.54 m Weight: 70.2 kg Last Vital Signs Temp 36.3 C L 05/20/25 11:05 Pulse 78 05/20/25 11:05 Resp 16 05/20/25 11:05 BP 136/67 05/20/25 11:05 Pulse Ox 98 05/20/25 11:05 O2 Del Method Room Air 05/20/25 11:05 Allergies Allergy/AdvReac Type Severity Reaction Status Date / Time sulfamethizole Allergy Severe Hives Verified 05/20/25 11:00 sulfamethoxazole Allergy Severe HIVES Verified 05/20/25 11:00 terbinafine Allergy Severe Hives Verified 05/20/25 11:00 trimethoprim Allergy Severe Hives Verified 05/20/25 11:00 Home Medications ?Medication ?Instructions ?Recorded ?Confirmed ?Type levothyroxine 88 mcg tablet 88 mcg PO DAILY #90 tabs 02/17/25 05/20/25 Rx (Synthroid) hydroxyzine HCl 50 mg tablet See Rx Instructions .Route 03/09/25 05/17/25 Rx .COMPLEX #180 tabs acetaminophen 325 mg tablet (Pain 650 mg PO Q6H PRN pain 05/12/25 05/17/25 History Relief (acetaminophen)) ibuprofen 200 mg tablet (Advil) 400 mg PO Q6H PRN pain 05/12/25 05/17/25 History Patient hx anesthesia problems: none Family hx anesthesia problems: none Results Review: All pre-operative results and documents have been reviewed as part of the pre-operative evaluation. REPLACED BY [facility] Past Medical History Medical History Tear of meniscus of knee joint Right knee pain Constipation Acute knee pain Acute foot pain History of stress fracture Anemia, unspecified Medial meniscus tear Effusion of knee joint Left knee injury Left knee pain Vertigo Elevated hemoglobin A1c Encounter for wellness examination Edema of left ankle Hematoma of left knee region Insufficiency fracture of medial femoral condyle Acute medial meniscus tear of right knee Degenerative arthritis of right knee Chondromalacia of right patellofemoral joint Carpal tunnel syndrome of right wrist Carpal tunnel syndrome of left wrist Hyperthyroidism Screening mammogram for high-risk patient Hormone imbalance Screening cholesterol level Skin lesion of left leg Hypothyroidism Surgical History Surgical History History of carpal tunnel surgery Left 08/2021 Right 09/[address] Strauss History of ankle surgery Left ganglion cyst excision 07/2019 Dr. Rashid. Family History Family History Father CHF (congestive heart failure) Mother CHF (congestive heart failure) Sibling Hyperlipidemia Hypertension Thyroid condition Other Family history of coronary artery disease Heart disease Social History Social History Smoking status: Never smoker Second hand tobacco smoke exposure: No Alcohol intake: current Drinks per week: 1 Substance use: never Substance use type: does not use Do You Feel Safe in your Home?: Yes Lack of Transportation: No Lack of Food: Never True Current Housing: I Have Housing Concerned About Future Housing: No Difficulty Paying Gas/Electric Bills: No Difficulty Paying for Meds: No Currently Unemployed: No Education: Associate Degree Living arrangements: with family Additional living arrangements comments: Occupation/Education: occupation 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 Gender identity (if verbalized by the patient): Female Spiritual care concerns: No Anes - Eval Final PreProcedure Day of Procedure 05/20/25 12:34 Patient weight: overweight Heart: regular rate and rhythm Lungs: clear to auscultation Airway: Mallampati scale class II Neurological: alert and oriented Last oral intake: >/= 8 hours ASA classification: II Emergent: no Anesthetic plan: proceed Anesthesia type and monitoring: general GIVS and standard monitoring Results Review: All pre-operative results and documents have been reviewed as part of the pre-operative evaluation. Informed Consent: The patient's anesthetic plan and its attendant risks and benefits were discussed with the patient/family/POA. Questions were solicited and answers provided to the satisfaction of the patient/family/POA.
[2025-05-20] MEDS: ceFAZolin 2 GM in SODIUM CHLORIDE 0.9% IV 50 ML 100 ML IVPB (12:41)
--- NOTE | 2025-05-20 12:47 | P.PNAN_ITS ---
Anes - Initial Pre Proc Eval Procedure: Operation Date: 05/20/25 13:00 Proposed Procedures p Left Knee Arthroscopy, Debride Meniscus Synovectomy Chondroplasty, Proceed As Indicated - Sergei Mayer MD Date/Time: 05/20/25 12:47 Surgeon: Sergei Mayer MD Pre Op Diagnosis: lt knee pain, med meniscus tear Patient Data Age: 64 Gender: F Height: 1.54 m Weight: 70.2 kg Last Vital Signs Temp 36.3 C L 05/20/25 11:05 Pulse 78 05/20/25 11:05 Resp 16 05/20/25 11:05 BP 136/67 05/20/25 11:05 Pulse Ox 98 05/20/25 11:05 O2 Del Method Room Air 05/20/25 11:05 Allergies Allergy/AdvReac Type Severity Reaction Status Date / Time sulfamethizole Allergy Severe Hives Verified 05/20/25 11:00 sulfamethoxazole Allergy Severe HIVES Verified 05/20/25 11:00 terbinafine Allergy Severe Hives Verified 05/20/25 11:00 trimethoprim Allergy Severe Hives Verified 05/20/25 11:00 Home Medications ?Medication ?Instructions ?Recorded ?Confirmed ?Type levothyroxine 88 mcg tablet 88 mcg PO DAILY #90 tabs 02/17/25 05/20/25 Rx (Synthroid) hydroxyzine HCl 50 mg tablet See Rx Instructions .Route 03/09/25 05/17/25 Rx .COMPLEX #180 tabs acetaminophen 325 mg tablet (Pain 650 mg PO Q6H PRN pain 05/12/25 05/17/25 History Relief (acetaminophen)) ibuprofen 200 mg tablet (Advil) 400 mg PO Q6H PRN pain 05/12/25 05/17/25 History Patient hx anesthesia problems: none Family hx anesthesia problems: none Results Review: All pre-operative results and documents have been reviewed as part of the pre- operative evaluation. [facility] Past Medical History Medical History Tear of meniscus of knee joint Right knee pain Constipation Acute knee pain Acute foot pain History of stress fracture Anemia, unspecified Medial meniscus tear Effusion of knee joint Left knee injury Left knee pain Vertigo Elevated hemoglobin A1c Encounter for wellness examination Edema of left ankle Hematoma of left knee region Insufficiency fracture of medial femoral condyle Acute medial meniscus tear of right knee Degenerative arthritis of right knee Chondromalacia of right patellofemoral joint Carpal tunnel syndrome of right wrist Carpal tunnel syndrome of left wrist Hyperthyroidism Screening mammogram for high-risk patient Hormone imbalance Screening cholesterol level Skin lesion of left leg Hypothyroidism Surgical History Surgical History History of carpal tunnel surgery Left 08/2021 Right 09/[address] Strauss History of ankle surgery Left ganglion cyst excision 07/2019 Dr. Rashid. Family History Family History Father CHF (congestive heart failure) Mother CHF (congestive heart failure) Sibling Hyperlipidemia Hypertension Thyroid condition Other Family history of coronary artery disease Heart disease Social History Social History Smoking status: Never smoker Second hand tobacco smoke exposure: No Alcohol intake: current Drinks per week: 1 Substance use: never Substance use type: does not use Do You Feel Safe in your Home?: Yes Lack of Transportation: No Lack of Food: Never True Current Housing: I Have Housing Concerned About Future Housing: No Difficulty Paying Gas/Electric Bills: No Difficulty Paying for Meds: No Currently Unemployed: No Education: Associate Degree Living arrangements: with family Additional living arrangements comments: Occupation/Education: occupation 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 Gender identity (if verbalized by the patient): Female Spiritual care concerns: No Anes - Eval Final PreProcedure Day of Procedure 05/20/25 12:47 Patient weight: overweight Heart: regular rate and rhythm Lungs: clear to auscultation Airway: Mallampati scale class II Neurological: alert and oriented Last oral intake: >/= 8 hours ASA classification: II Emergent: no Anesthetic plan: proceed Anesthesia type and monitoring: general LMA and standard monitoring Results Review: All pre-operative results and documents have been reviewed as part of the pre- operative evaluation. Informed Consent: The patient's anesthetic plan and its attendant risks and benefits were discussed with the patient/family/POA. Questions were solicited and answers provided to the satisfaction of the patient/family/POA.
[2025-05-20] MEDS: BUPivacaine HCL 0.25% PF 10 ML VIAL INFILTRATE (13:11)
--- NOTE | 2025-05-20 14:11 | W.PM.PROC2 ---
Procedure Note - Detailed Date of Procedure 05/20/25 Pre-op Diagnosis lt knee pain, med meniscus tear Post-op Diagnosis Other (Left knee medial meniscus tear, chondromalacia medial femoral condyle and patellofemoral joint, anterior synovitis extending medial and lateral gutters) Procedure Performed left knee arthroscopy with partial medial meniscectomy, extensive (major) synovectomy and chondroplasty of the patellofemoral and medial compartments. Surgeon Sergei Mayer MD Tennis Desk Team Member Scrub Anesthesia General Indications 64 year old woman with left knee pain, catching and locking. MRI demonstrates medial meniscus tear, chondromalacia, synovitis. Has failed conservative treatment with therapy, cortisone injection, activity modification. Presents for operative treatment. Findings Complex tear of the posterior horn medial meniscus. Grade 3 chondromalacia patella articulation and grade 2 chondromalacia of the corresponding femoral trochlea. Grade 2 chondromalacia medial femoral condyle. Lateral meniscus and lateral compartment intact. ACL, PCL intact. Medial meniscus tear corresponding to the MRI with radial tear at the root posterior horn junction and horizontal tear of the body. Description of Procedure Informed consent given by patient. Operative extremity marked in preoperative holding area. Patient received intravenous antibiotics. Patient brought to operating room and underwent general anesthetic by anesthesia team. Positioned supine on operating room table. Left leg placed into a posterior thigh leg becerra. Foot of the table dropped to 90? and right leg padded out of the field. Time-out performed confirming patient, site of surgery and plan. Left knee prepped and draped in usual sterile surgical fashion using ChloraPrep skin solution. Standard arthroscopic portals made by using an 11 blade knife for the anterior lateral portal 1st. Capsule penetrated bluntly. Camera and inflow started. The above operative findings noted. Intra-articular visualization used to position the anterior medial portal using 22 gauge spinal needle. An 11 blade knife used for the skin and blunt penetration of the capsule. 4.7 millimeter arthroscopic shaver introduced and partial medial meniscectomy of the loose and torn portion performed. Edge of meniscus completed with arthroscopic Wand. Arthroscopic Wand used to perform chondroplasty of the patellofemoral articulation and the medial femoral condyle. There was extensive wear on the femoral trochlea through most of the trochlea. This was debrided with the arthroscopic Wand and the shaver and finished with the Wand. Shaver reintroduced and a synovectomy performed of the anterior fat pad and extensive synovium as well as medial and lateral plica and medial and lateral gutters. The loose hypertrophic synovium which was impinging in the patellofemoral space was excised. Bleeding points coagulated with Wand. Knee inspected, no loose pieces noted. 1 liter of irrigant infused and suctioned out. Arthroscopic cannulas removed. Skin closed with 4 O nylon interrupted suture. Local anesthetic with 0.25% Marcaine. Sterile dressing applied. Patient awoken from anesthesia, extubated and taken to recovery room in stable condition. All sponge needle and instrument counts correct at the end of the case. Implants None Estimated Blood Loss 5 Tourniquet Time Total Tourniquet Time: 0 Drains No Packing No Pathology None sent Complications None Condition Stable Disposition PACU [facility] Billing Surgery - Charge Forward: Surgery Billing ([id number], [id number], [id number])
== END 2025-05-20 15:35 | disposition home or self-care (01) ==
PROVIDERS: PCP Family Medicine; Visit Provider Orthopaedic Surgery
PROC: (CPT 29870; principal; 2025-05-20 13:00)
DX: S83.232A Complex tear of medial meniscus, current injury, left knee, initial encounter (principal); M65.862 Other synovitis and tenosynovitis, left lower leg; M94.262 Chondromalacia, left knee; X50.0XXA Overexertion from strenuous movement or load, initial encounter
CPT/HCPCS: 29881; 29876; J0690; A9270; J1100; J1885; J2405; J2704; J3010; J7120

== ENCOUNTER 2025-09-07 15:32 | Outpatient (CLI) | payer BC, SELFPAY ==
--- NOTE | ~2025-09-07 | MM_ITS ---
EXAMINATION: MM screening nidhi BI w vika HISTORY: Screening TECHNIQUE: Craniocaudal and mediolateral oblique 3-D tomosynthesis images were obtained and synthetic 2-D images were generated. CAD analysis was submitted and interpreted. COMPARISON: Comparison to multiple prior studies sequentially, with oldest reviewed study dated , 06/02/2019 BREAST PARENCHYMAL COMPOSITION: Not Dense: There are scattered areas of fibroglandular density. FINDINGS: There is no evidence of suspicious mass, calcification, or architectural distortion to suggest malignancy in either breast. IMPRESSION: 1. No mammographic evidence of malignancy. 2. Recommend routine screening mammography in one year. BI-RADS Category 1: Negative Reviewed, dictated and finalized at location B. [employer]
== END 2025-09-07 15:33 | disposition home or self-care (01) ==
LOC: MICIMG 15:33
PROVIDERS: PCP Family Medicine; Visit Provider Family Medicine
DX: Z12.31 Encounter for screening mammogram for malignant neoplasm of breast (principal)
CPT/HCPCS: 77063; 77067